=== PATIENT | male | born 1980 | race Caucasian/White ===

== ENCOUNTER 2016-07-25 03:55 | Emergency (ER) | payer OTHER ==
[~2016-07-25] VITALS: Ht 172.7 cm; Wt 104.3 kg
[~2016-07-25 03:55] MED LIST: ASPI81TA3 PO; GLIP5TAB13 PO; IBUP-1542 PO; LISI-313 PO; LORA-441 PO; METF-382 PO
[2016-07-25 03:58] VITALS: Ht 172.7 cm; Wt 104.3 kg
[2016-07-25 05:51] LABS: ADD SCAN DIFF NO
[2016-07-25 05:54] LABS: BASOPHIL # 0.1 10^3/ul (0.0-0.1); EOSINOPHILS # 0.5 10^3/ul (0.0-0.5); EOSINOPHILS % 6.3 % (0.0-7.0); HEMATOCRIT 44.2 % (42.0-52.0); LYMPHOCYTES # 2.4 10^3/ul (0.8-2.9); LYMPHOCYTES % 32.8 % (15.0-51.0); MEAN CORPUSCULAR HEMOGLOBIN 27.8 pg (29.0-33.0); MEAN CORPUSCULAR HGB CONC 33.9 g/dl (32.0-37.0); MEAN CORPUSCULAR VOLUME 81.9 fl (82.0-101.0); MEAN PLATELET VOLUME 10.7 fl (7.4-10.4); MONOCYTE # 0.5 10^3/ul (0.3-0.9); MONOCYTES % 7.1 % (0.0-11.0); NEUTROPHIL # 3.8 10^3/ul (1.6-7.5); NEUTROPHILS % 52.5 % (39.0-77.0); PLATELET COUNT 226 10^3/UL (140-415); RED CELL DISTRIBUTION WIDTH 12.6 % (11.5-14.5); WHITE BLOOD COUNT 7.2 10^3/ul (4.8-10.8)
[2016-07-25 05:55] VITALS: BP 118/75; PULSE 70; RESP 14
[2016-07-25 06:05] LABS: ALBUMIN 4.4 g/dl (3.3-4.9); CHLORIDE 99 mmol/L (97-110); SODIUM 141 mmol/L (135-144)
[2016-07-25 06:07] LABS: BILIRUBIN,INDIRECT 0.1 mg/dl (0-1.1); BILIRUBIN,TOTAL 0.1 mg/dl (0.2-1.3); CREATININE 0.62 mg/dl (0.61-1.24)
[2016-07-25 06:08] LABS: ALANINE AMINOTRANSFERASE 104 IU/L (13-69); ALBUMIN/GLOBULIN RATIO 1.51; ALKALINE PHOSPHATASE 89 IU/L (42-121); ANION GAP 17 (8-16); ASPARTATE AMINO TRANSFERASE 37 IU/L (15-46); BLOOD UREA NITROGEN 14 mg/dl (7-20); CALCIUM 9.5 mg/dl (8.4-10.2); CARBON DIOXIDE 29 mmol/L (21-31); GLUCOSE 178 mg/dl (70-220); TOTAL PROTEIN 7.3 g/dl (6.1-8.1)
--- NOTE | 2016-07-25 06:10 | RADRPT ---
PROCEDURE: XR Chest. CLINICAL INDICATION: Abdominal pain TECHNIQUE: A single AP view of the chest was obtained. COMPARISON: Chest x-ray dated 04/08/2016 FINDINGS: No focal airspace opacification, pleural effusion or pneumothorax is seen. The cardiomediastinal si lhouette is within normal limits for size. The osseous structures are unremarkable. IMPRESSION: No radiographic evidence of acute cardiopulmonary disease. No significant interval change. RPTAT: HH .Yamileth Back MD, MD Date Time Electronically viewed and signed by .Yamileth Back MD, on 07/25/2016 06:10 .G/
[2016-07-25 06:20] LABS: TROPONIN-I < 0.012 ng/ml (0.00-0.12)
[2016-07-25] MEDS ORDERED: SOD CHLORIDE 0.9% 1,000 ML IV STA (06:35)
[2016-07-25] MEDS ORDERED: KETOROLAC 30 MG INJ IV STA (06:36)
[2016-07-25] MEDS ORDERED: IOHEXOL 300MG/ML 150 ML BTL ONE (06:37)
[2016-07-25] MEDS ORDERED: SOD CHLORIDE 0.9% 100 ML ONE ×2 (06:37→06:47)
[2016-07-25] MEDS ORDERED: IOHEXOL 100 ML ONE (06:47)
--- NOTE | 2016-07-25 06:48 | ERD ---
ER Documentation Chief Complaint Date/Time DATE: 07/25/16 TIME: 06:38 Chief Complaint pt woke 15 minutes ago w/ pressure like chest pain radaiting left arm HPI This is a 36-year-old male with history of hypertension, type 2 diabetes mellitus and hypercholesterolemia that presents to the emergency department complaining of a sudden onset of left lower quadrant pain that awoke him at roughly 3 AM, 15 minutes before he arrived to the emergency department. The patient indicated that the left lower quadrant pain was a sharp shooting pain with no radiation to the back or right lower quadrant. He had no frequency urgency or dysuria. He did indicate that shortly after the onset of the abdominal pain he developed a bilateral chest discomfort that radiated to the left and the right arm. He stated the chest discomfort was a sharp shooting pain that radiated to both the left and the right arm. Contrary to the triage note the patient stated he did not experience any chest pressure and no associated symptoms of nausea vomiting or diaphoresis. The patient does not smoke tobacco. He has been compliant with all his medications. He denies any polyuria polydipsia. He denies a headache or changes in vision. He has no shortness of breath at rest or exertion. ROS All systems reviewed and are negative except as per history of present illness. Medications Home Meds Active Scripts Ibuprofen* (Motrin*) 600 Mg Tab, 600 MG PO Q8, #30 TAB Prov:JERAMIE COLUNGA DO 04/08/16 Reported Medications Lorazepam* (Ativan*) 0.5 Mg Tablet, 0.5 MG PO Q8 Y for ANXIETY, #60 TAB 04/08/16 Metformin Hcl* (Metformin Hcl*) 500 Mg Tablet, 500 MG PO WITH BREAKFAST DINNE, # 30 TAB 04/08/16 Aspirin* (Aspirin* Chew) 81 Mg Tab.chew, 81 MG PO DAILY, TAB.CHEW 11/12/15 Lisinopril* (Lisinopril*) 5 Mg Tablet, 5 MG PO DAILY, #30 TAB 11/12/15 Glipizide* (Glipizide*) 5 Mg Tablet, 5 MG PO BID, TAB 11/12/15 Allergies Allergies: Coded Allergies: No Known Drug Allergies (Verified Allergy, Mild, 04/08/16) PMhx/Soc History of Surgery: No Anesthesia Reaction: No Hx Neurological Disorder: No Hx Respiratory Disorders: No Hx Cardiac Disorders: Yes (htn, dm, high cholesterol) Hx Psychiatric Problems: Yes (anxiety) Hx Miscellaneous Medical Probl: Yes (anxiety) Hx Alcohol Use: No Hx Substance Use: No Hx Tobacco Use: No Smoking Status: Never smoker Physical Exam Vitals Vital Signs Date Time Temp Pulse Resp B/P Pulse Ox O2 Delivery O2 Flow Rate FiO2 07/25/16 05:55 70 14 118/75 97 Room Air 07/25/16 03:58 97.7 78 20 185/110 96 Physical Exam Constitutional:Well-developed. Well-nourished. HEENT:Normocephalic. Atraumatic.Pupils were equal round reactive to light. Moist mucous membranes.No tonsillar exudates. Neck: No nuchal rigidity. No lymphadenopathy. No posterior cervical spine tenderness or step-offs. Respiratory: Not using accessory muscles of respiration.Lungs were clear to auscultation bilaterally. No rhonchi. No rales. No wheezing. Cardiovascular: Regular rate regular rhythm.No murmurs. No rubs were appreciated.S1, S2 normal. Distal pulses are palpable 2+ bilaterally. Reproducible bilateral chest wall tenderness with no crepitus no ecchymosis no flail chest peer GI: Abdomen was soft. Left lower quadrant tenderness. Non Distended. No pulsatile abdominal masses or bruits. No rebound. No guarding. Bowel sounds were present and normal. Muscle skeletal: Full range of motion of both the upper and lower extremities bilaterally.Normal muscle tone.No assymetrical calf tenderness or swelling. Skin: No petechia, no purpura. No lesions on the palms or the soles of the feet. No maculopapular rash. NEURO: Patient was alert, awake, orientated x3.No facial droop. Gait observed and normal with no ataxia.Speech had regular rate and rhythm. No focal neurological deficits. Result Diagram: 07/25/1636 07/25/1636 Results 24 hrs Laboratory Tests Test 07/25/16 05:36 Alanine Aminotransferase (ALT/SGPT) 104IU/L Albumin 4.4g/dl Albumin/Globulin Ratio 1.51 Alkaline Phosphatase 89IU/L Anion Gap 17 Aspartate Amino Transf (AST/SGOT) 37IU/L Basophils # 0.110^3/ul Basophils % 1.0% Blood Urea Nitrogen 14mg/dl Calcium Level 9.5mg/dl Carbon Dioxide Level 29mmol/L Chloride Level 99mmol/L Creatinine 0.62mg/dl Direct Bilirubin 0.00mg/dl Eosinophils # 0.510^3/ul Eosinophils % 6.3% Globulin 2.90g/dl Glucose Level 178mg/dl Hematocrit 44.2% Hemoglobin 15.0g/dl Indirect Bilirubin 0.1mg/dl Lipase 114U/L Lymphocytes # 2.410^3/ul Lymphocytes % 32.8% Mean Corpuscular Hemoglobin 27.8pg Mean Corpuscular Hemoglobin Concent 33.9g/dl Mean Corpuscular Volume 81.9fl Mean Platelet Volume 10.7fl Monocytes # 0.510^3/ul Monocytes % 7.1% Neutrophils # 3.810^3/ul Neutrophils % 52.5% Nucleated Red Blood Cells # 0.010^3/ul Nucleated Red Blood Cells % 0.0/100WBC Platelet Count 18781^3/UL Potassium Level 4.0mmol/L Red Blood Count 5.4010^6/ul Red Cell Distribution Width 12.6% Sodium Level 141mmol/L Total Bilirubin 0.1mg/dl Total Protein 7.3g/dl Troponin I < 0.012ng/ml White Blood Count 7.210^3/ul Current Medications Medications (Trade) Dose Ordered Sig/Kp Route PRN Reason Start Time Stop Time Status Last Admin Dose Admin Sodium Chloride (NS) 1,000 ml @ 1,000 mls/hr Q1H STAT IV 07/25/16 06:35 07/25/16 07:34 UNV Procedures/MDM The patient presented to the emergency department complaining of chest pain and abdominal pain. My clinical evaluation and workup was to distinguish minor causes of chest pain from acute life threatening cardiopulmonary causes such as myocardial infarction, pulmonary embolism, aortic dissection, esophageal rupture , cardiac tamponade, The patient was placed on a surveillance system monitor, continuous pulse oximetry and IV access established by nursing staff. The patient received anti-inflammatories for analgesic control. 12 Lead EKG tracing ordered and reviewed by myself showed: Normal sinus rhythm of 82 bpm and no arrhythmia. AR interval normal. QRS duration normal. No ST segment elevation No ST segment depression. No changes consistent with acute ischemia. Also obtained a CT scan of the abdomen given the patient also had abdominal pain. There is no evidence of diverticulitis, appendicitis or obstructive uropathy. This was reviewed by both myself and the radiologist. The patient had no leukocytosis. Troponin was normal. There is no electrolyte abnormalities. The patients chest pain was reproduced by palpation and horizontal flexion of the arms. It was my clinical impression that the pain was a result of inflammation of the skin and subcutaneous structures of the chest wall versus myocardial ischemia. I felt the patient had low-risk chest pain and could therefore be safely discharged with close follow-up. The patient was discharged home in fair condition. They were instructed to return to the emergency department at any time if there was any worsening of their condition. The patient stated they would follow up with their PCP in the next 24-48 hours to initiate a suitable medication regimen under the care of their PCP as well as to allow their PCP to monitor any drug reactions. The patient was discharged home with prescriptions after they gave informed consent to the new medication. They were also fully informed by myself on the adverse effects and adverse drug interactions in order to provide adequate safeguards to prevent possible adverse reactions to medications. Departure Diagnosis: Primary Impression: Costochondritis Condition: TRISTON Figueroa Jul 25, 2016 06:48
[2016-07-25] MEDS ORDERED: DICLOFENAC SODIUM 37.5 MG/ML VIAL IV STA (06:49)
[2016-07-25] MEDS ORDERED: NAPR-260 PO (06:53)
[2016-07-25 06:58] LABS: ADD UMIC NO; URINE BILIRUBIN (Dip) NEGATIVE (NEGATIVE); URINE BLOOD (Dip) NEGATIVE (NEGATIVE); URINE COLOR LT. YELLOW (YELLOW); URINE KETONES (Dip) TRACE (NEGATIVE); URINE LEUKOCYTE ESTERASE (Dip) NEGATIVE (NEGATIVE); URINE NITRITE (Dip) NEGATIVE (NEGATIVE); URINE TOTAL PROTEIN (Dip) NEGATIVE (NEGATIVE); URINE UROBILINOGEN (Dip) 0.2 E.U./dL (0.1-1.0)
--- NOTE | 2016-07-25 07:00 | RADRPT ---
PROCEDURE: CT ABDOMEN/PELVIS WITH CONTRAST CLINICAL INDICATION: 36-year-old male with abdominal pain. TECHNIQUE: The study was performed utilizing a [employer] [place] [employer] VCT 64-slice CT scanner. Direct axia l sections were obtained through the abdomen and pelvis with the use of 100 cc of Omnipaque-300 tera onic intravenous contrast material. Sagittal and coronal reformations were obtained. Automated expos ure control and iterative reconstruction techniques were utilized for this examination. The images were reviewed on a PACS workstation. CTD/vol = 15.3 mGy; Total Exam DLP = 976.7 mGy-cm. COMPARISON: CT abdomen/pelvis November 27, 2015. FINDINGS: The lung bases are unremarkable. There is no evidence for significant pleural effusion. The liver has a normal size and contour. There is diffuse decreased density throughout the liver consistent w ith fatty infiltration without focal areas of abnormal density or contrast enhancement. No intrahepa tic nor extrahepatic biliary ductal dilatation is seen. The gallbladder demonstrates no wall thicken ing nor pericholecystic fluid. No biliary stones are evident. The pancreas is without areas of abnor mal attenuation or contrast enhancement. This spleen is identified and has a normal size without ab normal density or contrast enhancement. The adrenal glands are unremarkable. The kidneys are functio nal bilaterally without abnormal density. No hydroureteronephrosis nor nephroureterolithiasis is cassidy dent. The urinary bladder contains urine. There is mild retained stool identified throughout the col on without gross bowel obstruction. The appendix is visualized and is without edema or surrounding inflammatory reaction. There is no significant free fluid. The aortoiliac vessels are without aneur ysmal dilatation. The osseous structures are intact. IMPRESSION: 1. Diffuse fatty infiltration of the liver. 2. Retained stool without gross bowel obstruction. 3. No CT evidence for appendicitis. .Rodney Triana MD, Date Time Electronically viewed and signed by .Rodney Triana MD, on 07/25/2016 07:00 .Vikash/
== END 2016-07-25 08:09 | disposition home or self-care (01) ==
LOC: E/R 03:55
DX: M94.0 Chondrocostal junction syndrome [Tietze] (principal); I10 Essential (primary) hypertension; E11.9 Type 2 diabetes mellitus without complications; Z79.84 Long term (current) use of oral hypoglycemic drugs; Z79.82 Long term (current) use of aspirin
CPT/HCPCS: 36415; 71010; 74177; 80053; 81003; 83690; 84484; 85025; 93005; 96374; J7030; Q9967; Z7502; Z7610

== ENCOUNTER 2016-08-11 01:12 | Emergency (ER) | payer SELFPAY ==
[~2016-08-11] VITALS: Ht 172.7 cm; Wt 103.0 kg
[~2016-08-11 01:12] MED LIST changes: +NAPR-260 PO
[2016-08-11 01:40] VITALS: Ht 172.7 cm; Wt 103.0 kg
== END 2016-08-11 02:39 | disposition left against medical advice (07) ==
LOC: E/R 01:12
DX: Z53.21 Procedure and treatment not carried out due to patient leaving prior to being seen by health care provider (principal)

== ENCOUNTER 2016-08-21 02:34 | Emergency (ER) | payer OTHER ==
[~2016-08-21] VITALS: Ht 172.7 cm; Wt 104.5 kg
[2016-08-21 02:39] VITALS: Ht 172.7 cm; Wt 104.5 kg
[2016-08-21] MEDS ORDERED: IBUP-1542 PO (04:43)
[2016-08-21] MEDS ORDERED: GUAI120S26 PO (04:43)
[2016-08-21] MEDS ORDERED: CETI10CA PO (04:43)
[2016-08-21 04:50] VITALS: BP 128/72; PULSE 76; RESP 20; TEMP 98.4
--- NOTE | 2016-08-21 05:15 | ERD ---
ER Documentation Chief Complaint Date/Time DATE: 08/21/16 TIME: 05:09 Chief Complaint Anxiety, Unable to sleep, bodyaches HPI 36-year-old male presents to emergency department for complaints of cough bodyaches runny nose nasal congestion for 5 days. Patient has been having dry cough, does not cough up any phlegm or blood. Patient does not have any shortness breath or wheezing. Patient has been having runny nose nasal congestion clear nasal discharge. Patient has history of anxiety, unable to sleep because of his body aches. Patient did not take any medications of symptoms. Patient states that he takes his medication for anxiety, sees a specialist for this. His anxiety is controlled at this time. ROS All systems reviewed and are negative except as per history of present illness. Medications Home Meds Active Scripts Cetirizine Hcl* (Zyrtec*) 10 Mg Capsule, 10 MG PO DAILY, #30 TAB.CHEW Prov:RODNEY CHAMBERS [employer]OR 08/21/16 Ibuprofen* (Motrin*) 600 Mg Tab, 600 MG PO Q6H Y for PAIN AND OR ELEVATED TEMP, #30 TAB Prov:RODNEY CHAMBERS [employer] MONITOR 08/21/16 Iwxwcdgnwyd-B-Zatxxpnwod Hb* (Guaifenesin* DM Syrup) 120 Ml Syrup, 10 ML PO Q4H Y for COUGH, #120 ML Prov:RODNEY CHAMBERS NP 08/21/16 Naproxen* (Naprosyn*) 500 Mg Tablet, 500 MG PO BID Y for PAIN AND/OR INFLAMMATION, #20 TAB Prov:TRISTON PRATT 07/25/16 Ibuprofen* (Motrin*) 600 Mg Tab, 600 MG PO Q8, #30 TAB Prov:JERAMIE COLUNGA DO 04/08/16 Reported Medications Lorazepam* (Ativan*) 0.5 Mg Tablet, 0.5 MG PO Q8 Y for ANXIETY, #60 TAB 04/08/16 Metformin Hcl* (Metformin Hcl*) 500 Mg Tablet, 500 MG PO WITH BREAKFAST DINNE, # 30 TAB 04/08/16 Aspirin* (Aspirin* Chew) 81 Mg Tab.chew, 81 MG PO DAILY, TAB.CHEW 11/12/15 Lisinopril* (Lisinopril*) 5 Mg Tablet, 5 MG PO DAILY, #30 TAB 11/12/15 Glipizide* (Glipizide*) 5 Mg Tablet, 5 MG PO BID, TAB 11/12/15 Allergies Allergies: Coded Allergies: No Known Drug Allergies (Verified Allergy, Mild, 04/08/16) PMhx/Soc History of Surgery: No Anesthesia Reaction: No Hx Neurological Disorder: No Hx Respiratory Disorders: No Hx Cardiac Disorders: Yes (htn, dm, high cholesterol) Hx Psychiatric Problems: Yes (anxiety) Hx Miscellaneous Medical Probl: Yes (anxiety) Hx Alcohol Use: No Hx Substance Use: No Hx Tobacco Use: No Smoking Status: Never smoker FmHx Family History: No coronary disease, No diabetes, No other Physical Exam Vitals Vital Signs Date Time Temp Pulse Resp B/P Pulse Ox O2 Delivery O2 Flow Rate FiO2 08/21/16 02:39 97.6 89 20 132/84 98 Physical Exam GENERAL: The patient is well developed and appropriate for usual state of health, in no apparent distress. HEENT: Atraumatic. Ears: Normal tympanic membrane, no erythema or bulging. No ear canal swelling. No ear discharge. Nose: Erythematous nasal turbinates with clear nasal. Throat: oropharynx erythematous nasal turbinates with clear nasal discharge. No tonsillar swelling or tonsillar exudates. No lymphadenopathy. CHEST: Clear to auscultation bilaterally. There are no rales, wheezes or rhonchi. HEART: Regular rate and rhythm. No murmurs, clicks, rubs or gallops. No S3 or S4. ABDOMEN: Soft, nontender and nondistended. Good bowel sounds. No rebound or guarding. No gross peritonitis. No gross organomegaly or masses. No Park sign or McBurney point tenderness. BACK: No midline or flank tenderness. EXTREMITIES: Equal pulses bilaterally. There is no peripheral clubbing, cyanosis or edema. No focal swelling or erythema. Full range of motion. Grossly neurovascularly intact. NEURO: Alert and oriented. Cranial nerves 2-12 intact. Motor strength in all 4 extremities with 5/5 strength. Sensation grossly intact. Normal speech and gait. SKIN: There is no apparent rash or petechia. The skin is warm and dry. HEMATOLOGIC AND LYMPHATIC: There is no evidence of excessive bruising or lymphedema. No gross cervical, axillary, or inguinal lymphadenopathy. Procedures/MDM Medical Decision Making: Patient symptoms are most likely consistent with upper respiratory tract infection, which viral in origin. There is low suspicion for Pneumonia at this time since patients lungs sounds are clear, patient O2 saturation is normal and patient doesnt show any respiratory distress. Patients chest xray doesnt show infiltrates or any other cardiopulmonary emergencies at this time. There is low suspicion for other cardiopulmonary emergencies at this time such as CHF, Pulmonary Embolism, Pneumothorax or any other cardiopulmonary emergencies at this time. There is low suspicion for sepsis. Patient appears well and is hemodynamically stable. Fever is controlled with medicines. Disposition: Home. Condition: Stable Prescriptions: Guaifenesin DM Zyrtec, ibuprofen Instructions: Patient is advised to take medications as prescribed. Patient is advised to rest. Patient advised to increase fluid intake, do humidifier at home and if possible, do salt water gargles. Patient is advised that if symptoms are worse, shortness of breath, uncontrolled fever, stridor, vomiting, worst signs and symptoms to return to emergency department immediately. Otherwise, patient is advised to follow up with primary doctor in 5-7 days. Departure Diagnosis: Primary Impression: URI (upper respiratory infection) URI type: unspecified viral URI Qualified Code: J06.9 - Viral upper respiratory tract infection Condition: Stable Patient Instructions: Uri, Viral, No Abx (Adult) RODNEY CHAMBERS NP Aug 21, 2016 05:15
== END 2016-08-21 05:10 | disposition home or self-care (01) ==
LOC: FTE 02:34
DX: J06.9 Acute upper respiratory infection, unspecified (principal); I10 Essential (primary) hypertension; E11.9 Type 2 diabetes mellitus without complications; Z79.84 Long term (current) use of oral hypoglycemic drugs; Z79.82 Long term (current) use of aspirin
CPT/HCPCS: 99283

== ENCOUNTER 2016-09-14 23:58 | Emergency (ER) | payer SELFPAY ==
[~2016-09-14] VITALS: Ht 172.7 cm; Wt 105.0 kg
[~2016-09-14 23:58] MED LIST changes: +CETI10CA PO; +GUAI120S26 PO; -METF-382 PO; +METF500T4 PO
[2016-09-15 00:02] VITALS: Ht 172.7 cm; Wt 105.0 kg
== END 2016-09-15 00:15 | disposition left against medical advice (07) ==
LOC: FTE 23:58 → E/R 09-15 00:15
DX: Z53.21 Procedure and treatment not carried out due to patient leaving prior to being seen by health care provider (principal)

== ENCOUNTER 2016-09-28 23:34 | Emergency (ER) | payer OTHER ==
[~2016-09-28] VITALS: Ht 172.7 cm; Wt 104.0 kg
[~2016-09-28 23:34] MED LIST changes: -CETI10CA PO; +GABA100C14 PO; -GUAI120S26 PO; -IBUP-1542 PO; -LORA-441 PO; -NAPR-260 PO
[2016-09-29 00:01] VITALS: Ht 172.7 cm; Wt 104.0 kg
--- NOTE | 2016-09-29 00:56 | ERD ---
ER Documentation Chief Complaint Date/Time DATE: 09/29/16 TIME: 00:54 Chief Complaint Body aches and muscle cramps after taking statins for1 WEEK, HPI 36 year female presents here in emergency department for complaint of body aches and muscle cramps after taking statins for 1 week. Patient was placed on new medication, some statins for his cholesterol started to have the body aches and muscle cramps afterwards. Patient denies any chest pain or palpitations. Patient is any shortness of breath. Patient denies any dyspnea on exertion or dyspnea on lying down. Patient denies any dark-colored urine. Patient denies any hematuria. Patient denies any flank pain. ROS All systems reviewed and are negative except as per history of present illness. Medications Home Meds Reported Medications Gabapentin* (Gabapentin*) 100 Mg Capsule, 200 MG PO QHS, #180 CAP 09/19/16 Metformin Hcl* (Metformin Hcl*) 500 Mg Tablet, 500 MG PO WITH BREAKFAST DINNE, # 30 TAB 04/08/16 Aspirin* (Aspirin* Chew) 81 Mg Tab.chew, 81 MG PO DAILY, TAB.CHEW 11/12/15 Lisinopril* (Lisinopril*) 5 Mg Tablet, 5 MG PO DAILY, #30 TAB 11/12/15 Glipizide* (Glipizide*) 5 Mg Tablet, 5 MG PO BID, TAB 11/12/15 Allergies Allergies: Coded Allergies: No Known Drug Allergies (Verified Allergy, Mild, 04/08/16) PMhx/Soc History of Surgery: No Anesthesia Reaction: No Hx Neurological Disorder: No Hx Respiratory Disorders: No Hx Cardiac Disorders: Yes (htn, dm, high cholesterol) Hx Psychiatric Problems: Yes (anxiety) Hx Miscellaneous Medical Probl: Yes (anxiety) Hx Alcohol Use: No Hx Substance Use: No Hx Tobacco Use: No Smoking Status: Never smoker FmHx Family History: No coronary disease, No diabetes, No other Physical Exam Vitals Vital Signs Date Time Temp Pulse Resp B/P Pulse Ox O2 Delivery O2 Flow Rate FiO2 09/29/16 00:01 97.7 90 16 141/87 97 Physical Exam GENERAL: The patient is well developed and appropriate for usual state of health, in no apparent distress. CHEST: Clear to auscultation bilaterally. There are no rales, wheezes or rhonchi. HEART: Regular rate and rhythm. No murmurs, clicks, rubs or gallops. No S3 or S4. ABDOMEN: Soft, nontender and nondistended. Good bowel sounds. No rebound or guarding. No gross peritonitis. No gross organomegaly or masses. No Park sign or McBurney point tenderness. BACK: No midline or flank tenderness. EXTREMITIES: Equal pulses bilaterally. There is no peripheral clubbing, cyanosis or edema. No focal swelling or erythema. Full range of motion. Grossly neurovascularly intact. NEURO: Alert and oriented. Cranial nerves 2-12 intact. Motor strength in all 4 extremities with 5/5 strength. Sensation grossly intact. Normal speech and gait. SKIN: There is no apparent rash or petechia. The skin is warm and dry. HEMATOLOGIC AND LYMPHATIC: There is no evidence of excessive bruising or lymphedema. No gross cervical, axillary, or inguinal lymphadenopathy. Result Diagram: 09/29/16 0052 Results 24 hrs Laboratory Tests Test 09/29/16 00:52 Urine Color LT. YELLOW Urine Clarity CLEAR Urine pH 6.0 Urine Specific [place] 1.020 Urine Ketones NEGATIVE Urine Nitrite NEGATIVE Urine Bilirubin NEGATIVE Urine Urobilinogen 0.2 E.U./dL Urine Leukocyte Esterase NEGATIVE Urine Microscopic RBC 0-2/HPF Urine Microscopic WBC NONE SEEN/HPF Urine Squamous Epithelial Cells RARE Urine Bacteria RARE Urine Hemoglobin TRACE Urine Glucose >=1000% Urine Total Protein NEGATIVE Sodium Level 134mmol/L Potassium Level 4.3mmol/L Chloride Level 98mmol/L Carbon Dioxide Level 28mmol/L Anion Gap 12 Blood Urea Nitrogen 14mg/dl Creatinine 0.68mg/dl Glucose Level 251mg/dl Calcium Level 9.7mg/dl Total Bilirubin 0.1mg/dl Direct Bilirubin 0.00mg/dl Indirect Bilirubin 0.1mg/dl Aspartate Amino Transf (AST/SGOT) 35IU/L Alanine Aminotransferase (ALT/SGPT) 93IU/L Alkaline Phosphatase 91IU/L Creatine Kinase 95IU/L Total Protein 7.9g/dl Albumin 4.4g/dl Globulin 3.50g/dl Albumin/Globulin Ratio 1.25 Procedures/MDM Medical Decision Making: Patient's pain is most likely consistent with a myalgias caused by statins, also advised to stop this, no rhabdomyolysis noted, total CK is normal. There is no suspicion for neurovascular compromise. Patient has intact sensation and circulation of the affected extremity. There is low suspicion for septic arthritis. Patient does not have any fever. Radiology exams are not indicated at this time. Disposition: Home. Patient is given prescription for ibuprofen for pain. Patient was advised to.taking status come discussed this with primary care doctor. Patient was advised that if symptoms are worse, numbness, tingling, high fever, unable to move joint, worsening symptoms, to return to emergency department immediately. Otherwise, patient is advised to follow up with the primary care doctor in 5-7 days for reevaluation of symptoms. Departure Diagnosis: Primary Impression: Myalgia Condition: Stable Patient Instructions: Myalgias Additional Instructions: Patient is given prescription for ibuprofen for pain. Patient was advised to.taking status come discussed this with primary care doctor. Patient was advised that if symptoms are worse, numbness, tingling, high fever, unable to move joint, worsening symptoms, to return to emergency department immediately. Otherwise, patient is advised to follow up with the primary care doctor in 5-7 days for reevaluation of symptoms. RODNEY CHAMBERS NP September 29, 2016 00:55
[2016-09-29 01:21] LABS: ADD UMIC YES; URINE BILIRUBIN (Dip) NEGATIVE (NEGATIVE); URINE BLOOD (Dip) TRACE (NEGATIVE); URINE COLOR LT. YELLOW (YELLOW); URINE GLUCOSE (Dip) >=1000 % (NEGATIVE); URINE KETONES (Dip) NEGATIVE (NEGATIVE); URINE LEUKOCYTE ESTERASE (Dip) NEGATIVE (NEGATIVE); URINE NITRITE (Dip) NEGATIVE (NEGATIVE); URINE TOTAL PROTEIN (Dip) NEGATIVE (NEGATIVE); URINE UROBILINOGEN (Dip) 0.2 E.U./dL (0.1-1.0)
[2016-09-29 01:34] LABS: ALBUMIN 4.4 g/dl (3.3-4.9); ALBUMIN/GLOBULIN RATIO 1.25; BILIRUBIN,INDIRECT 0.1 mg/dl (0-1.1); BILIRUBIN,TOTAL 0.1 mg/dl (0.2-1.3); CALCIUM 9.7 mg/dl (8.4-10.2); CREATININE 0.68 mg/dl (0.61-1.24); POTASSIUM 4.3 mmol/L (3.5-5.1); TOTAL PROTEIN 7.9 g/dl (6.1-8.1)
[2016-09-29 01:38] LABS: BACTERIA,URINE RARE; SQUAMOUS EPITHELIAL CELL,UR RARE; URINE RBCS 0-2 /HPF (0)
[2016-09-29] MEDS ORDERED: IBUP-1542 PO (02:02)
== END 2016-09-29 02:10 | disposition home or self-care (01) ==
LOC: FTE 23:34
DX: M79.1 Myalgia (principal); I10 Essential (primary) hypertension; E11.9 Type 2 diabetes mellitus without complications; Z79.82 Long term (current) use of aspirin; Z79.84 Long term (current) use of oral hypoglycemic drugs
CPT/HCPCS: 80053; 81001; 82550; Z7502; 81003; 99283

== ENCOUNTER 2016-10-13 02:24 | Emergency (ER) | payer OTHER ==
[~2016-10-13] VITALS: Ht 172.7 cm; Wt 104.5 kg
[~2016-10-13 02:24] MED LIST changes: +IBUP-1542 PO
[2016-10-13 02:29] VITALS: Ht 172.7 cm; Wt 104.5 kg
--- NOTE | 2016-10-13 03:29 | ERD ---
ER Documentation Chief Complaint Date/Time DATE: 10/13/16 TIME: 03:25 Chief Complaint cp/sob that woke him sleep, hx anxiety, wants to be checked out HPI 36-year-old male presents to emergency department for complaints of chest pain shortness of breath that woke him up this morning. Patient has history of anxiety from before, just wanted to be evaluated again and make sure that he doesn't have any acute coronary syndrome. Patient has had this on and off chest pains before. Patient discussed the chest pain as sharp in succession scale, not better or worse with anything. Patient took his anxiety medication at home which helped his symptoms, now patient is asymptomatic. Patient's pain is improved and resolved. Patient denies homicidal or suicidal ideations. ROS All systems reviewed and are negative except as per history of present illness. Medications Home Meds Active Scripts Ibuprofen* (Motrin*) 600 Mg Tab, 600 MG PO Q6H Y for PAIN AND OR ELEVATED TEMP, #30 TAB Prov:RODNEY CHAMBERS NP 09/29/16 Reported Medications Gabapentin* (Gabapentin*) 100 Mg Capsule, 200 MG PO QHS, #180 CAP 09/19/16 Metformin Hcl* (Metformin Hcl*) 500 Mg Tablet, 500 MG PO WITH BREAKFAST DINNE, # 30 TAB 04/08/16 Aspirin* (Aspirin* Chew) 81 Mg Tab.chew, 81 MG PO DAILY, TAB.CHEW 11/12/15 Lisinopril* (Lisinopril*) 5 Mg Tablet, 5 MG PO DAILY, #30 TAB 11/12/15 Glipizide* (Glipizide*) 5 Mg Tablet, 5 MG PO BID, TAB 11/12/15 Allergies Allergies: Coded Allergies: No Known Drug Allergies (Verified Allergy, Mild, 04/08/16) PMhx/Soc History of Surgery: No Anesthesia Reaction: No Hx Neurological Disorder: No Hx Respiratory Disorders: No Hx Cardiac Disorders: Yes (htn, dm, high cholesterol) Hx Psychiatric Problems: Yes (anxiety) Hx Miscellaneous Medical Probl: Yes (anxiety) Hx Alcohol Use: No Hx Substance Use: No Hx Tobacco Use: No FmHx Family History: No coronary disease, No diabetes, No other Physical Exam Vitals Vital Signs Date Time Temp Pulse Resp B/P Pulse Ox O2 Delivery O2 Flow Rate FiO2 10/13/16 02:29 97.0 70 20 119/76 97 Physical Exam GENERAL: The patient is well developed and appropriate for usual state of health, in no apparent distress. CHEST: Clear to auscultation bilaterally. There are no rales, wheezes or rhonchi. HEART: Regular rate and rhythm. No murmurs, clicks, rubs or gallops. No S3 or S4. ABDOMEN: Soft, nontender and nondistended. Good bowel sounds. No rebound or guarding. No gross peritonitis. No gross organomegaly or masses. No Park sign or McBurney point tenderness. BACK: No midline or flank tenderness. EXTREMITIES: Equal pulses bilaterally. There is no peripheral clubbing, cyanosis or edema. No focal swelling or erythema. Full range of motion. Grossly neurovascularly intact. NEURO: Alert and oriented. Cranial nerves 2-12 intact. Motor strength in all 4 extremities with 5/5 strength. Sensation grossly intact. Normal speech and gait. SKIN: There is no apparent rash or petechia. The skin is warm and dry. HEMATOLOGIC AND LYMPHATIC: There is no evidence of excessive bruising or lymphedema. No gross cervical, axillary, or inguinal lymphadenopathy. Results 24 hrs EKG was done, read by me and is normal sinus rhythm with sinus arrhythmia at a rate of 77, normal axis, there is no ST changes or changes in the EKG that indicates any cardiac emergencies at this time. Patient's EKG was also reviewed by Dr. Castro. Impression: no acute findings on EKG PROCEDURE: CHEST - 1 VIEW CLINICAL INDICATION: 36-year-old male with chest pain. TECHNIQUE: A single frontal AP upright portable view of the chest was performed. The images were reviewed on a PACS workstation. COMPARISON: Chest x-ray July 25, 2016. FINDINGS: The cardiomediastinal silhouette has a normal appearance. There is no evidence for an infiltrate. The pulmonary vascularity is within normal limits. There is no evidence for pneumothorax or pneumomediastinum. The osseous structures are intact. IMPRESSION: No evidence for active cardiopulmonary disease. .Rodney Triana MD, Date Time Electronically viewed and signed by .Rodney Triana MD, on 10/13/2016 03:41 .M/ CC: RODNEY CHAMBERS NP Procedures/MDM Medical Decision Making: Patient's chest pain nonspecific at this time, possible anxiety related. There is low suspicion for cardiopulmonary emergencies at this time. Patient has low risk factors. EKG is normal, there is no changes in the EKG that indicates cardiac emergencies. Chest X-ray does not show cardiopulmonary emergencies at this time. There is low suspicion for aortic aneurysm, myocardial infarction, pneumothorax, pleural effusion, pulmonary embolism, or any other cardiopulmonary emergencies at this time. Dispostion: Home. Stable Departure Diagnosis: Primary Impression: Atypical chest pain Condition: Stable Patient Instructions: Chest Pain, Uncertain Cause RODNEY CHAMBERS NP October 13, 2016 03:29
--- NOTE | 2016-10-13 03:41 | RADRPT ---
PROCEDURE: CHEST - 1 VIEW CLINICAL INDICATION: 36-year-old male with chest pain. TECHNIQUE: A single frontal AP upright portable view of the chest was performed. The images were reviewed on a PACS workstation. COMPARISON: Chest x-ray July 25, 2016. FINDINGS: The cardiomediastinal silhouette has a normal appearance. There is no evidence for an infiltrate. T he pulmonary vascularity is within normal limits. There is no evidence for pneumothorax or pneumomed iastinum. The osseous structures are intact. IMPRESSION: No evidence for active cardiopulmonary disease. .Rodney Triana MD, MD Date Time Electronically viewed and signed by .Rodney Triana MD, on 10/13/2016 03:41 .Vikash/
== END 2016-10-13 04:05 | disposition home or self-care (01) ==
LOC: FTE 02:24
DX: R07.89 Other chest pain (principal); I10 Essential (primary) hypertension; E11.9 Type 2 diabetes mellitus without complications; Z79.82 Long term (current) use of aspirin; Z79.84 Long term (current) use of oral hypoglycemic drugs
CPT/HCPCS: 71010; 93005; Z7502

== ENCOUNTER 2016-11-27 17:26 | Emergency (ER) | payer OTHER ==
[~2016-11-27] VITALS: Ht 167.6 cm; Wt 104.5 kg
[2016-11-27 17:32] VITALS: Ht 167.6 cm; Wt 104.5 kg
[2016-11-27 18:05] LABS: BASOPHIL # 0.1 10^3/ul (0.0-0.1); EOSINOPHILS # 0.3 10^3/ul (0.0-0.5); HEMATOCRIT 43.4 % (42.0-52.0); HEMOGLOBIN 14.7 g/dl (14.0-18.0); LYMPHOCYTES # 3.2 10^3/ul (0.8-2.9); LYMPHOCYTES % 39.9 % (15.0-51.0); MEAN CORPUSCULAR HEMOGLOBIN 28.2 pg (29.0-33.0); MEAN CORPUSCULAR HGB CONC 33.9 g/dl (32.0-37.0); MEAN CORPUSCULAR VOLUME 83.3 fl (82.0-101.0); MONOCYTE # 0.6 10^3/ul (0.3-0.9); NEUTROPHIL # 3.9 10^3/ul (1.6-7.5); PLATELET COUNT 230 10^3/UL (140-415); RED BLOOD COUNT 5.21 10^6/ul (4.70-6.10); RED CELL DISTRIBUTION WIDTH 12.4 % (11.5-14.5)
[2016-11-27 18:24] LABS: ANION GAP 15 (8-16); BLOOD UREA NITROGEN 12 mg/dl (7-20); CALCIUM 9.5 mg/dl (8.4-10.2); CARBON DIOXIDE 24 mmol/L (21-31); CHLORIDE 100 mmol/L (97-110); CREATININE 0.72 mg/dl (0.61-1.24); GLUCOSE 194 mg/dl (70-220); POTASSIUM 4.2 mmol/L (3.5-5.1); SODIUM 135 mmol/L (135-144)
[2016-11-27 18:40] LABS: TROPONIN-I < 0.012 ng/ml (0.00-0.12)
--- NOTE | 2016-11-27 18:41 | RADRPT ---
PROCEDURE: Chest x-ray CLINICAL INDICATION: Chest pain TECHNIQUE: Chest single view COMPARISON: 10/13/2016 FINDINGS: The heart is normal in size. The pulmonary vessels are normal in caliber. The lungs are clear. Th e costophrenic angles are sharp. The visualized bony thorax is unremarkable. IMPRESSION: No acute cardiopulmonary disease. RPTAT: HH .Franklin Linares MD, Date Time Electronically viewed and signed by .Franklin Linares MD, on 11/27/2016 18:41 .W/
--- NOTE | 2016-11-27 18:47 | ERD ---
ER Documentation Chief Complaint Date/Time DATE: 11/27/16 TIME: 18:44 Chief Complaint Complains of mid-sternal chest pain since today HPI This is a 36-year-old male who presents to the emergency room for evaluation of a mild chest pain and shortness of breath. The patient does state he has a history of anxiety and states that he felt gradual chest pain. He states that he became mildly short of breath. He denies any radiation of the chest pain and states it was substernal. He denies any nausea vomiting or diaphoresis associated with this and states that he is no longer in any pain at this time. He came to the ER for further evaluation ROS All systems reviewed and are negative except as per history of present illness. Medications Home Meds Active Scripts Ibuprofen* (Motrin*) 600 Mg Tab, 600 MG PO Q6H Y for PAIN AND OR ELEVATED TEMP, #30 TAB Prov:RODNEY CHAMBERS [employer]WARE [employer] 09/29/16 Reported Medications Gabapentin* (Gabapentin*) 100 Mg Capsule, 200 MG PO QHS, #180 CAP 09/19/16 Metformin Hcl* (Metformin Hcl*) 500 Mg Tablet, 500 MG PO WITH BREAKFAST DINNE, # 30 TAB 04/08/16 Aspirin* (Aspirin* Chew) 81 Mg Tab.chew, 81 MG PO DAILY, TAB.CHEW 11/12/15 Lisinopril* (Lisinopril*) 5 Mg Tablet, 5 MG PO DAILY, #30 TAB 11/12/15 Glipizide* (Glipizide*) 5 Mg Tablet, 5 MG PO BID, TAB 11/12/15 Allergies Allergies: Coded Allergies: No Known Drug Allergies (Verified Allergy, Mild, 04/08/16) PMhx/Soc History of Surgery: No Anesthesia Reaction: No Hx Neurological Disorder: No Hx Respiratory Disorders: No Hx Cardiac Disorders: Yes (htn, dm, high cholesterol) Hx Psychiatric Problems: Yes (anxiety) Hx Miscellaneous Medical Probl: Yes (anxiety) Hx Alcohol Use: No Hx Substance Use: No Hx Tobacco Use: No Smoking Status: Never smoker Physical Exam Vitals Vital Signs Date Time Temp Pulse Resp B/P Pulse Ox O2 Delivery O2 Flow Rate FiO2 11/27/16 18:00 Nasal Cannula 2 11/27/16 17:32 97.8 76 20 142/86 98 Physical Exam INITIAL VITAL SIGNS: Reviewed by me GENERAL: The patient is well developed and appropriate for usual state of health in no apparent distress HEENT: Pupils equal, round, and reactive to light. EOMI. There is no scleral icterus. NECK: C-spine is soft and supple, there is no meningismus. There is no cervical lymphadenopathy. LUNGS: Clear to auscultation bilaterally. There are no rales, wheezes or rhonchi. HEART: Regular rate and rhythm, no murmurs, clicks, rubs or gallops. ABDOMEN: Soft, non-tender, non-distended. There are bowel sounds in all four quadrants. No rebound or guarding. EXTREMITIES: There is no peripheral cyanosis or edema. No focal swelling or erythema. NEUROLOGICAL: The patient moves all four extremities with 5/5 strength. Cranial nerves II - XII are intact. Normal gait. Alert and oriented SKIN: There is no apparent rash or petechiae. HEME/LYMPHATIC: There is no evidence of excessive bruising or lymphedema. PSYCHIATRIC: The patient does appear to be mildly anxious Result Diagram: 11/27/16175311/27/16 1754 Results 24 hrs Laboratory Tests Test 11/27/16 17:54 White Blood Count 8.010^3/ul Red Blood Count 5.2110^6/ul Hemoglobin 14.7g/dl Hematocrit 43.4% Mean Corpuscular Volume 83.3fl Mean Corpuscular Hemoglobin 28.2pg Mean Corpuscular Hemoglobin Concent 33.9g/dl Red Cell Distribution Width 12.4% Platelet Count 16436^3/UL Mean Platelet Volume 11.0fl Neutrophils % 48.0% Lymphocytes % 39.9% Monocytes % 7.0% Eosinophils % 4.0% Basophils % 1.0% Nucleated Red Blood Cells % 0.0/100WBC Neutrophils # 3.910^3/ul Lymphocytes # 3.210^3/ul Monocytes # 0.610^3/ul Eosinophils # 0.310^3/ul Basophils # 0.110^3/ul Nucleated Red Blood Cells # 0.010^3/ul Sodium Level 135mmol/L Potassium Level 4.2mmol/L Chloride Level 100mmol/L Carbon Dioxide Level 24mmol/L Anion Gap 15 Blood Urea Nitrogen 12mg/dl Creatinine 0.72mg/dl Glucose Level 194mg/dl Calcium Level 9.5mg/dl Troponin I < 0.012ng/ml Procedures/[facility] EKG: Rate/Rhythm: [Normal Sinus Rhythm] QRS, ST, T-waves: [No changes consistent w/ acute ischemia] Impression: [No evidence of ischemia or arrhythmia] Chest X-ray 1V Interpreted by me: Soft Tissue: No acute abnormalities Bones: No acute abnormalities Mediastinum/Cardiac Silhouette/Lungs: [No acute abnormalities] This 36-year-old male presents to the ER for evaluation of chest pain. When I evaluated this patient he did appear to be mildly anxious. The patient has been seen multiple times in the past for chest pain and multiple times for anxiety. He does state that this could be his anxiety but he was unsure because he had chest pain in the center of his chest and set up on the left side of his chest which he normally is. The patient was hemodynamically stable and not hypoxic on my examination. I did obtain a cardiac workup including an troponin which is negative. His EKG is nonischemic, chest x-ray is also clear. I do feel this patient suffering from anxiety. After some verbal consolation the patient does state he is feeling better. He will be discharged home at this time. Departure Diagnosis: Primary Impression: Chest pain Additional Impression: Anxiety Condition: Stable JERAMIE COLUNGA DO Nov 27, 2016 18:47
[2016-11-27 18:50] VITALS: BP 123/81; PULSE 69; RESP 18
[2016-11-27] MEDS ORDERED: GABA300C16 PO (18:51)
[2016-11-27] MEDS ORDERED: GLIP5TAB13 PO (18:52)
[2016-11-27] MEDS ORDERED: METF1000 PO (18:52)
[2016-11-27] MEDS ORDERED: LORA1TAB PO (18:53)
== END 2016-11-27 18:50 | disposition home or self-care (01) ==
LOC: E/R 17:26
DX: R07.2 Precordial pain (principal); F41.9 Anxiety disorder, unspecified; I10 Essential (primary) hypertension; E11.9 Type 2 diabetes mellitus without complications; Z79.82 Long term (current) use of aspirin; Z79.84 Long term (current) use of oral hypoglycemic drugs
CPT/HCPCS: 36415; 71010; 80048; 84484; 85025; 93005; Z7502

== ENCOUNTER 2017-01-04 02:33 | Emergency (ER) | payer OTHER ==
[~2017-01-04] VITALS: Ht 172.7 cm; Wt 104.5 kg
[~2017-01-04 02:33] MED LIST changes: -GABA100C14 PO; +GABA300C16 PO; -IBUP-1542 PO; +LORA1TAB PO; +METF1000 PO; -METF500T4 PO
[2017-01-04 02:39] VITALS: Ht 172.7 cm; Wt 104.5 kg
--- NOTE | 2017-01-04 03:05 | ERD ---
ER Documentation Chief Complaint Date/Time DATE: 01/04/17 TIME: 03:02 Chief Complaint sharp like chest pain radiating to left arm. HPI This is a 36-year-old male who presents to the emergency room for evaluation of chest pain and anxiety. The patient does have a history of diabetes and anxiety and has been the emergency room multiple times in the past for similar symptoms. The patient has had multiple cardiac workups which have been negative. The patient states that tonight he got home from work and was feeling anxious. He states that he started to get some tingling in his left arm and came to the ER for evaluation. He denies any active chest pain or shortness of breath at this time. ROS All systems reviewed and are negative except as per history of present illness. Medications Home Meds Reported Medications Lorazepam* (Lorazepam*) 1 Mg Tablet, 0.5 MG PO HS Y for ANXIETY, #30 TAB 11/27/16 Metformin Hcl* (Metformin Hcl*) 1,000 Mg Tablet, 1000 MG PO WITH BREAKFAST DINNE , #60 TAB 11/27/16 Glipizide* (Glipizide*) 5 Mg Tablet, 5 MG PO AC BREAKFAST Y for PRN, TAB 11/27/16 Gabapentin* (Gabapentin*) 300 Mg Capsule, 300 MG PO QHS, #60 CAP 11/27/16 Aspirin* (Aspirin* Chew) 81 Mg Tab.chew, 81 MG PO DAILY, TAB.CHEW 11/12/15 Lisinopril* (Lisinopril*) 5 Mg Tablet, 5 MG PO DAILY, #30 TAB 11/12/15 Allergies Allergies: Coded Allergies: No Known Drug Allergies (Verified Allergy, Mild, 11/27/16) PMhx/Soc History of Surgery: No Anesthesia Reaction: No Hx Neurological Disorder: No Hx Respiratory Disorders: No Hx Cardiac Disorders: Yes (htn, dm, high cholesterol) Hx Psychiatric Problems: Yes (anxiety) Hx Miscellaneous Medical Probl: Yes (anxiety) Hx Alcohol Use: No Hx Substance Use: No Hx Tobacco Use: No Physical Exam Vitals Vital Signs Date Time Temp Pulse Resp B/P Pulse Ox O2 Delivery O2 Flow Rate FiO2 01/04/17 02:39 97.2 67 18 123/79 97 Physical Exam INITIAL VITAL SIGNS: Reviewed by me GENERAL: The patient is well developed and appropriate for usual state of health in no apparent distress HEENT: Pupils equal, round, and reactive to light. EOMI. There is no scleral icterus. NECK: C-spine is soft and supple, there is no meningismus. There is no cervical lymphadenopathy. LUNGS: Clear to auscultation bilaterally. There are no rales, wheezes or rhonchi. HEART: Regular rate and rhythm, no murmurs, clicks, rubs or gallops. ABDOMEN: Soft, non-tender, non-distended. There are bowel sounds in all four quadrants. No rebound or guarding. EXTREMITIES: There is no peripheral cyanosis or edema. No focal swelling or erythema. NEUROLOGICAL: The patient moves all four extremities with 5/5 strength. Cranial nerves II - XII are intact. Normal gait. Alert and oriented SKIN: There is no apparent rash or petechiae. HEME/LYMPHATIC: There is no evidence of excessive bruising or lymphedema. PSYCHIATRIC: The patient does have an anxious affect Procedures/MDM EKG: Rate/Rhythm: [Normal Sinus Rhythm] QRS, ST, T-waves: [No changes consistent w/ acute ischemia] Impression: [No evidence of ischemia or arrhythmia] This 36-year-old male presents to the emergency room for evaluation of left arm numbness. The patient does have a previous history of anxiety with multiple emergency room visits for such. The patient was mildly anxious on my examination. I did obtain an EKG on this patient and it showed a normal sinus rhythm. This patient had a negative cardiac workup done in October of this year. This patient is not hypoxic, no respiratory distress, and he is hemodynamically stable at this time. I have counseled this patient verbally and the patient does state he is feeling better at this time. This patient will be discharged. Departure Diagnosis: Primary Impression: Anxiety attack Condition: Stable JERAMIE COLUNGA Jan 04, 2017 03:05
[2017-01-04 03:14] VITALS: BP 125/80; PULSE 80; RESP 18; TEMP 98.6
== END 2017-01-04 03:20 | disposition home or self-care (01) ==
LOC: E/R 02:33
DX: F41.9 Anxiety disorder, unspecified (principal); E11.9 Type 2 diabetes mellitus without complications; I10 Essential (primary) hypertension; Z79.82 Long term (current) use of aspirin; Z79.84 Long term (current) use of oral hypoglycemic drugs
CPT/HCPCS: 93005; Z7502

== ENCOUNTER 2017-02-07 03:47 | Emergency (ER) | payer OTHER ==
[~2017-02-07] VITALS: Wt 102.5 kg
--- NOTE | 2017-02-07 04:09 | ERA ---
ER Documentation Chief Complaint Date/Time DATE: 02/07/17 TIME: 04:08 Chief Complaint AP x2 months HPI The patient is a 36-year-old male, presenting with intermittent left-sided abdominal pain for more than 2 months, worse today, associated with constipation. He denies fever, chills, neck pain, chest pain, dyspnea, vomiting , dysuria. He does not smoke nor drink nor does illicit drug Past medical history: Hypertension, diabetes mellitus, anxiety, dyslipidemia Past surgical history: None ROS All systems reviewed and are negative except as per history of present illness. Medications Home Meds Active Scripts Bisacodyl* (Dulcolax*) 5 Mg Tablet.dr, 10 MG [place] DAILY Y for CONSTIPATION, #10 TAB Prov:JONATHAN DELGADO MD 02/07/17 Polyethylene Glycol* (Miralax*) 17 Gm Powd.pack, 17 GM PO DAILY, #7 Prov:JONATHAN DELGADO MD 02/07/17 Ibuprofen* (Motrin*) 600 Mg Tab, 600 MG PO Q6, #20 TAB Prov:JONATHAN DELGADO MD 02/07/17 Reported Medications Lorazepam* (Lorazepam*) 1 Mg Tablet, 0.5 MG PO HS Y for ANXIETY, #30 TAB 11/27/16 Metformin Hcl* (Metformin Hcl*) 1,000 Mg Tablet, 1000 MG PO WITH BREAKFAST DINNE , #60 TAB 11/27/16 Glipizide* (Glipizide*) 5 Mg Tablet, 5 MG PO AC BREAKFAST Y for PRN, TAB 11/27/16 Gabapentin* (Gabapentin*) 300 Mg Capsule, 300 MG PO QHS, #60 CAP 11/27/16 Aspirin* (Aspirin* Chew) 81 Mg Tab.chew, 81 MG PO DAILY, TAB.CHEW 11/12/15 Lisinopril* (Lisinopril*) 5 Mg Tablet, 5 MG PO DAILY, #30 TAB 11/12/15 Allergies Allergies: Coded Allergies: No Known Drug Allergies (Verified Allergy, Mild, 11/27/16) PMhx/Soc History of Surgery: No Anesthesia Reaction: No Hx Neurological Disorder: No Hx Respiratory Disorders: No Hx Cardiac Disorders: Yes (htn, dm, high cholesterol) Hx Psychiatric Problems: Yes (anxiety) Hx Miscellaneous Medical Probl: Yes (anxiety) Hx Alcohol Use: No Hx Substance Use: No Hx Tobacco Use: No Physical Exam Vitals Vital Signs Date Time Temp Pulse Resp B/P Pulse Ox O2 Delivery O2 Flow Rate FiO2 02/07/17 03:54 97.5 73 20 140/94 99 Physical Exam Const: No acute distress. Head: Atraumatic. Eyes: Normal Conjunctiva. ENT: Normal External Ears, Nose and Mouth. Neck: Full range of motion. No meningismus. Resp: Clear to auscultation bilaterally. Cardio: Regular rate and rhythm. Abd: Soft, non distended, normal bowel sounds, non tender. Skin: No petechiae or rashes. Back: No midline or flank tenderness. Ext: No cyanosis, or edema. Neur: Awake and alert. No focal deficit Psych: Normal Mood and Affect. Results 24 hrs Current Medications Medications (Trade) Dose Ordered Sig/Kp Route PRN Reason Start Time Stop Time Status Last Admin Dose Admin Tramadol HCl (Ultram) 50 mg ONCE ONCE PO 02/07/17 04:30 02/07/17 04:31 Procedures/MDM MEDICAL MAKING DECISION: The patient is a 35-year-old male, presenting with acute on chronic abdominal pain, most likely due to constipation. He was treated with Ultram for pain with good response The differential diagnoses considered include but are not limited to inguinal hernia incarceration/strangulation, cholelithiasis, cholecystitis, cystitis, pancreatitis, hepatitis, gastritis, peptic ulcer disease, gastric ulcer, appendicitis, diverticulitis, cholangitis, choledocholithiasis, partial small bowel obstruction. Departure Diagnosis: Primary Impression: Constipation Condition: Good Comments He was discharged with Motrin, MiraLAX, Dulcolax suppository I discussed the findings with the patient. I advised the patient to follow-up with the primary physician in about 1-2 days, sooner if needed and return if any concern. JONATHAN DELGADO MD Feb 07, 2017 04:09
[2017-02-07] MEDS ORDERED: IBUP-1542 PO (04:20)
[2017-02-07] MEDS ORDERED: POLY17PO6 PO (04:21)
[2017-02-07] MEDS ORDERED: BISA-57 PR (04:22)
[2017-02-07] MEDS ORDERED: traMADol 50 MG TAB PO ONE (04:30)
[2017-02-07 05:06] VITALS: BP 105/63; PULSE 68; RESP 16
== END 2017-02-07 05:08 | disposition home or self-care (01) ==
LOC: E/R 03:47
DX: K59.00 Constipation, unspecified (principal); I10 Essential (primary) hypertension; E11.9 Type 2 diabetes mellitus without complications; Z79.82 Long term (current) use of aspirin; Z79.84 Long term (current) use of oral hypoglycemic drugs
CPT/HCPCS: Z7502; Z7610; 99283

== ENCOUNTER 2017-02-09 19:41 | Emergency (ER) | payer SELFPAY ==
[~2017-02-09] VITALS: Ht 172.7 cm; Wt 106.8 kg
[~2017-02-09 19:41] MED LIST changes: +BISA-57 PR; +IBUP-1542 PO; +POLY17PO6 PO
[2017-02-09 19:50] VITALS: Ht 172.7 cm; Wt 106.8 kg
== END 2017-02-09 22:43 | disposition left against medical advice (07) ==
LOC: E/R 19:41
DX: Z53.21 Procedure and treatment not carried out due to patient leaving prior to being seen by health care provider (principal)
CPT/HCPCS: 93005

== ENCOUNTER 2017-03-20 00:09 | Emergency (ER) | payer SELFPAY ==
[~2017-03-20] VITALS: Ht 165.1 cm; Wt 103.0 kg
[2017-03-20 00:13] VITALS: Ht 165.1 cm; Wt 103.0 kg
== END 2017-03-20 01:21 | disposition left against medical advice (07) ==
LOC: E/R 00:09
DX: Z53.21 Procedure and treatment not carried out due to patient leaving prior to being seen by health care provider (principal)

== ENCOUNTER 2017-03-31 00:32 | Emergency (ER) | payer OTHER ==
[~2017-03-31] VITALS: Ht 172.7 cm; Wt 104.1 kg
[2017-03-31 00:47] VITALS: Ht 172.7 cm; Wt 104.1 kg
--- NOTE | 2017-03-31 01:45 | RADRPT ---
PROCEDURE: Chest. CLINICAL INDICATION: Chest pain. TECHNIQUE: Single frontal view of the chest was obtained. COMPARISON: 11/27/2016. FINDINGS: The cardiac silhouette is within normal limits. The aortic arch is unremarkable. There is no focal consolidation, vascular congestion or pleural effusion. There is no pneumothorax. IMPRESSION: No evidence for active cardiopulmonary disease. .Indra Roy MD, MD Date Time Electronically viewed and signed by .Indra Roy MD, MD on 03/31/2017 01:45 .T/
[2017-03-31 01:46] LABS: BASOPHIL # 0.1 10^3/ul (0.0-0.1); BASOPHILS % 0.7 % (0.0-2.0); EOSINOPHILS # 0.5 10^3/ul (0.0-0.5); EOSINOPHILS % 5.4 % (0.0-7.0); HEMATOCRIT 45.9 % (42.0-52.0); HEMOGLOBIN 15.4 g/dl (14.0-18.0); LYMPHOCYTES # 3.6 10^3/ul (0.8-2.9); LYMPHOCYTES % 40.7 % (15.0-51.0); MEAN CORPUSCULAR HEMOGLOBIN 27.9 pg (29.0-33.0); MEAN CORPUSCULAR HGB CONC 33.6 g/dl (32.0-37.0); MEAN CORPUSCULAR VOLUME 83.3 fl (82.0-101.0); MONOCYTE # 0.6 10^3/ul (0.3-0.9); MONOCYTES % 6.5 % (0.0-11.0); NEUTROPHIL # 4.1 10^3/ul (1.6-7.5); NEUTROPHILS % 46.4 % (39.0-77.0); PLATELET COUNT 223 10^3/UL (140-415); RED BLOOD COUNT 5.51 10^6/ul (4.70-6.10); RED CELL DISTRIBUTION WIDTH 12.6 % (11.5-14.5); WHITE BLOOD COUNT 8.7 10^3/ul (4.8-10.8)
--- NOTE | 2017-03-31 02:04 | ERD ---
ER Documentation Chief Complaint Chief Complaint CP, SOB x2hrs [employer]. Cardiac hx +stress test, scheduled angiogram on 04/01/17 HPI This is a 36-year-old no chest pain shortness breath for 2 hours prior to arrival. Patient has a history of positive stress test and scheduled for angiogram on April 01. Pain is mild to moderate intensity with no exacerbating the pain is substernal with no radiations. Associated shortness of breath. Associated diaphoresis. ROS All systems reviewed and are negative except as per history of present illness. Medications Home Meds Active Scripts Bisacodyl* (Dulcolax*) 5 Mg Tablet.dr, 10 MG [place] DAILY Y for CONSTIPATION, #10 TAB Prov:JONATHAN DELGADO MD 02/07/17 Polyethylene Glycol* (Miralax*) 17 Gm Powd.pack, 17 GM PO DAILY, #7 Prov:JONATHAN DELGADO MD 02/07/17 Ibuprofen* (Motrin*) 600 Mg Tab, 600 MG PO Q6, #20 TAB Prov:JONATHAN DELGADO MD 02/07/17 Reported Medications Lorazepam* (Lorazepam*) 1 Mg Tablet, 0.5 MG PO HS Y for ANXIETY, #30 TAB 11/27/16 Metformin Hcl* (Metformin Hcl*) 1,000 Mg Tablet, 1000 MG PO WITH BREAKFAST DINNE , #60 TAB 11/27/16 Glipizide* (Glipizide*) 5 Mg Tablet, 5 MG PO AC BREAKFAST Y for PRN, TAB 11/27/16 Gabapentin* (Gabapentin*) 300 Mg Capsule, 300 MG PO QHS, #60 CAP 11/27/16 Aspirin* (Aspirin* Chew) 81 Mg Tab.chew, 81 MG PO DAILY, TAB.CHEW 11/12/15 Lisinopril* (Lisinopril*) 5 Mg Tablet, 5 MG PO DAILY, #30 TAB 11/12/15 Allergies Allergies: Coded Allergies: No Known Drug Allergies (Verified Allergy, Mild, 03/31/17) PMhx/Soc History of Surgery: No Anesthesia Reaction: No Hx Neurological Disorder: No Hx Respiratory Disorders: No Hx Cardiac Disorders: Yes (htn, dm, high cholesterol) Hx Psychiatric Problems: Yes (anxiety) Hx Miscellaneous Medical Probl: Yes (anxiety) Hx Alcohol Use: No Hx Substance Use: No Hx Tobacco Use: No Smoking Status: Never smoker Physical Exam Vitals Vital Signs Date Time Temp Pulse Resp B/P Pulse Ox O2 Delivery O2 Flow Rate FiO2 03/31/17 01:50 74 16 125/80 98 Room Air 03/31/17 00:47 98.1 79 18 143/83 97 Physical Exam Const: [] Head: Atraumatic Eyes: Normal Conjunctiva ENT: Normal External Ears, Nose and Mouth. Neck: Full range of motion..~ No meningismus. Resp: Clear to auscultation bilaterally Cardio: Regular rate and rhythm, no murmurs Abd: Soft, non tender, non distended. Normal bowel sounds Skin: No petechiae or rashes Back: No midline or flank tenderness Ext: No cyanosis, or edema Neur: Awake and alert Psych: Normal Mood and Affect Result Diagram: 03/31/17 0120 Results 24 hrs Laboratory Tests Test 03/31/17 01:19 03/31/17 01:20 Bedside Glucose 246mg/dL White Blood Count 8.710^3/ul Red Blood Count 5.5110^6/ul Hemoglobin 15.4g/dl Hematocrit 45.9% Mean Corpuscular Volume 83.3fl Mean Corpuscular Hemoglobin 27.9pg Mean Corpuscular Hemoglobin Concent 33.6g/dl Red Cell Distribution Width 12.6% Platelet Count 66968^3/UL Mean Platelet Volume 11.0fl Neutrophils % 46.4% Lymphocytes % 40.7% Monocytes % 6.5% Eosinophils % 5.4% Basophils % 0.7% Nucleated Red Blood Cells % 0.0/100WBC Neutrophils # 4.110^3/ul Lymphocytes # 3.610^3/ul Monocytes # 0.610^3/ul Eosinophils # 0.510^3/ul Basophils # 0.110^3/ul Nucleated Red Blood Cells # 0.010^3/ul Procedures/MDM EKG: Rate/Rhythm: [Normal Sinus Rhythm] QRS, ST, T-waves: [No changes consistent w/ acute ischemia] Impression: [No evidence of ischemia or arrhythmia] Chest X-ray 1V Interpreted by me: Soft Tissue: No acute abnormalities Bones: No acute abnormalities Mediastinum/Cardiac Silhouette/Lungs: [No acute abnormalities] Patient's symptoms are concerning for cardiac cause will require inpatient workup and continuous monitoring. Further w/u for ischemia, arrhythmia, PE or dissection will be deferred to the inpatient team. Accepting Care Team: Current data and ongoing care discussed. Time: 1:30 AM Primary Provider: Dr. Gonzales Consulting: [[employer]] Outstanding Data: none Departure Diagnosis: Primary Impression: Chest pain Chest pain type: chest pain due to myocardial ischemia Ischemic chest pain type: unspecified angina pectoris type Qualified Code: I20.9 - Chest pain due to myocardial ischemia, unspecified ischemic chest pain type Condition: Serious CHANTAL EARL Mar 31, 2017 02:04
[2017-03-31 02:05] LABS: ALANINE AMINOTRANSFERASE 127 IU/L (13-69); ALBUMIN 4.4 g/dl (3.3-4.9); ALBUMIN/GLOBULIN RATIO 1.18; ALKALINE PHOSPHATASE 87 IU/L (42-121); ANION GAP 15 (8-16); ASPARTATE AMINO TRANSFERASE 44 IU/L (15-46); BILIRUBIN,INDIRECT 0.1 mg/dl (0-1.1); BILIRUBIN,TOTAL 0.1 mg/dl (0.2-1.3); BLOOD UREA NITROGEN 17 mg/dl (7-20); CALCIUM 9.9 mg/dl (8.4-10.2); CARBON DIOXIDE 29 mmol/L (21-31); CHLORIDE 99 mmol/L (97-110); CREATININE 0.88 mg/dl (0.61-1.24); GLUCOSE 243 mg/dl (70-220); SODIUM 139 mmol/L (135-144); TOTAL PROTEIN 8.1 g/dl (6.1-8.1)
[2017-03-31] MEDS ORDERED: SOD CHLORIDE 0.9% 1,000 ML IV SCH (02:09)
[2017-03-31 02:18] LABS: B-TYPE NATRIURETIC PEPTIDE < 11 PG/ML (0-125); TROPONIN-I < 0.012 ng/ml (0.00-0.12)
[2017-03-31] MEDS ORDERED: NITROGLYCERIN (SL) 0.4 MG TAB SL PRN (02:30)
[2017-03-31] MEDS ORDERED: GLUCOSE GEL 15 GRAM TUBE BUCCAL PRN (02:30)
[2017-03-31] MEDS ORDERED: DOCUSATE SODIUM 100 MG CAP PO PRN (02:30)
[2017-03-31] MEDS ORDERED: GLUCAGON 1 MG INJ IM PRN (02:30)
[2017-03-31] MEDS ORDERED: ACETAMINOPHEN 325 MG TAB PO PRN (02:30)
[2017-03-31] MEDS ORDERED: DEXTROSE 50% 50 ML SYRINGE IV PRN ×2 (02:30)
[2017-03-31] MEDS ORDERED: ONDANSETRON 4 MG INJ IV PRN (02:30)
[2017-03-31] MEDS ORDERED: GLUCOSE GEL 15 GRAM TUBE PO PRN ×2 (02:30)
[2017-03-31] MEDS ORDERED: BISACODYL (EC) 5 MG TAB PO PRN (02:30)
[2017-03-31] MEDS ORDERED: NACL 0.9% 3 ML SYG IV SCH (02:30)
[2017-03-31] MEDS ORDERED: LORAZEPAM 1 MG TAB PO PRN (02:30)
[2017-03-31 06:00] VITALS: BP 117/72; PULSE 66; RESP 13
[2017-03-31] MEDS ORDERED: PANTOPRAZOLE 40 MG INJ IV SCH (06:00)
[2017-03-31 06:57] LABS: BASOPHIL # 0.1 10^3/ul (0.0-0.1); BASOPHILS % 1.1 % (0.0-2.0); EOSINOPHILS # 0.6 10^3/ul (0.0-0.5); EOSINOPHILS % 6.8 % (0.0-7.0); HEMATOCRIT 45.7 % (42.0-52.0); HEMOGLOBIN 14.7 g/dl (14.0-18.0); LYMPHOCYTES # 4.2 10^3/ul (0.8-2.9); LYMPHOCYTES % 46.7 % (15.0-51.0); MEAN CORPUSCULAR HEMOGLOBIN 27.2 pg (29.0-33.0); MEAN CORPUSCULAR HGB CONC 32.2 g/dl (32.0-37.0); MEAN CORPUSCULAR VOLUME 84.5 fl (82.0-101.0); MEAN PLATELET VOLUME 11.3 fl (7.4-10.4); MONOCYTE # 0.7 10^3/ul (0.3-0.9); MONOCYTES % 7.3 % (0.0-11.0); NEUTROPHIL # 3.4 10^3/ul (1.6-7.5); NEUTROPHILS % 37.9 % (39.0-77.0); PLATELET COUNT 212 10^3/UL (140-415); RED BLOOD COUNT 5.41 10^6/ul (4.70-6.10)
--- NOTE | 2017-03-31 07:05 | HP ---
Date/Time of Note Date/Time of Note DATE: 03/31/17 TIME: 07:01 Assessment/Plan VTE Prophylaxis VTE Prophylaxis Intervention: SCD's Lines/Catheters IV Catheter Type (from Nrs): Saline Lock Assessment/Plan Chief Complaint/Hosp Course This is a 36-year-old male being admitted to the telemetry floor for: #1 chest pain: Rule out ACS versus hyperglycemic episode versus anxiety: Patient has history of abnormal stress test and is scheduled for catheterization on 04/[address] Jimenez. Patient did not take his diabetes medications for approximately 2 days and blood sugars were around 240s. The symptoms could be secondary to that however based on his cardiac history we will trend cardiac troponins 3. I will defer further imaging to the marble supervisor. #2 diabetes mellitus: We will check a hemoglobin A1c palpation on insulin sliding scale, will hold metformin and glipizide #3 hypertension: We will continue patient's home medication #4 anxiety: Patient's episode also could be anxiety related. We will continue patient benzo. Further treatment strategy will be implemented as per the clinical course Problems: HPI/ROS Admit Date/Time Admit Date/Time Hx of Present Illness Chief complaint: Chest pain, headache This is a 36-year-old who presents with chest pain shortness breath for 2 hours prior to arrival. Pain is mild to moderate intensity with no exacerbating the pain is substernal with no radiations. Associated shortness of breath. Associated diaphoresis. He states that his blood sugar was elevated in the 240s approximately and he has not been able to take his medications as he ran out of them approximately 2 days ago. At the current time his symptoms have resolved. Of note patient had previous abnormal stress test and was scheduled to have cardiac catheterization by Dr. Jimenez on 04/01 2017 at [facility]. Allergies: NKDA Medications: See MAR ROS Const: As per HPI Eyes : No pain discharge or redness or change in visual acuity ENT: No pain, sore throat, congestion, congestion, dysphagia or discharge Respiratory: No shortness of breath, cough, sputum, wheezing, or pleuritic pain Cardiovascular: As per HPI GI : no change in appetite, abdominal pain, nausea, vomiting, diarrhea, constipation, or change in the color his stool Genitourinary: No dysuria, hematuria, flank pain , discharge or CVA tenderness Musculoskeletal: No joint pain, back pain, neck pain, restricted range of motion in neck or joints Skin: No rash, bruising or hives Neuro: No headache, dizziness, syncope, seizure, focal weakness Endocrine: No polyuria, polydipsia, temperature intolerance Psych: No hallucination, depression, anxiety or suicidal ideation PMH/Family/Social Past Medical History Hypertension, diabetes mellitus Past Surgical History Past Surgical Hx: no surgical history Family History Significant Family History: no pertinent family hx Social History Alcohol Use: none Smoking Status: Never smoker Drug Use: none Exam/Review of Systems Vital Signs Vitals Vital Signs Date Time Temp Pulse Resp B/P Pulse Ox O2 Delivery O2 Flow Rate FiO2 03/31/17 06:00 66 13 117/72 97 Room Air 03/31/17 00:47 98.1 Exam Exam General: Patient is an obese male lying in bed in no acute distress HEENT: Atraumatic, normocephalic. The pupils are equal, round and reactive. Extraocular motor are intact Neck: Supple with full range of motion. No rigidity or meningismus Chest: Nontender Lungs: Clear to auscultation bilaterally no crackles rales or wheezing Heart: Normal S1-S2, Regular rhythm and rate. No overt murmurs appreciated Abdomen: Soft , nontender, nondistended , bowel sounds are present. No guarding no rebound tenderness , No masses or organomegaly. No costovertebral temporal angle mass Extremities: Normal to inspection, no edema no cyanosis Neurologic: Normal mental status, speech normal, cranial nerves II through XII are intact, motor and sensory are intact, no focal weakness Additional Comments PROCEDURE: Chest. CLINICAL INDICATION: Chest pain. TECHNIQUE: Single frontal view of the chest was obtained. COMPARISON: 11/27/2016. FINDINGS: The cardiac silhouette is within normal limits. The aortic arch is unremarkable. There is no focal consolidation, vascular congestion or pleural effusion. There is no pneumothorax. IMPRESSION: No evidence for active cardiopulmonary disease. .Indra Roy MD, MD Date Time Electronically viewed and signed by .Indra Roy MD, MD on 03/31/2017 01:45 .T/ CC: CHANTAL EARL EKG: Rate/Rhythm: [Normal Sinus Rhythm] QRS, ST, T-waves: [No changes consistent w/ acute ischemia] Impression: [No evidence of ischemia or arrhythmia] as per ED physician documentation Labs Result Diagram: 03/31/17 0527 03/31/17 0120 Medications Medications Current Medications Sodium Chloride (NS) 1,000 ml @ 70 mls/hr [id number] IV Last administered on 02:40; Admin Dose 70 MLS/HR; Start 03/31/17 at 02:09 Ondansetron HCl (Zofran Inj) 4 mg Q6H PRN IV NAUSEA AND/OR VOMITING; Start at 02:30 Nitroglycerin (Nitroglycerin (Sl Tab) 0.4 Mg) 1 tab Q5M PRN SL CHEST PAIN; Start 03/31/17 at 02:30 Acetaminophen (Tylenol Tab) 650 mg Q6H PRN PO PAIN LEVEL 1-3 OR FEVER; Start 03/31/17 at 02:30 Docusate Sodium (Colace) 100 mg Q12H PRN PO CONSTIPATION; Start 03/31/17 at 02 :30 Bisacodyl (Dulcolax) 5 mg DAILY PRN PO CONSTIPATION; Start 03/31/17 at 02:30 Pantoprazole (Protonix Iv) 40 mg DAILY@06 IV Last administered on 03/31/17 05 :34; Admin Dose 40 MG; Start 03/31/17 at 06:00 Aspirin (Aspirin) 81 mg DAILY PO ; Start 03/31/17 at 09:00 Gabapentin (Neurontin) 300 mg QHS PO ; Start 03/31/17 at 21:00 Lisinopril (Zestril) 5 mg DAILY PO ; Start 03/31/17 at 09:00 Lorazepam (Ativan) 0.5 mg HS PRN PO ANXIETY; Start 03/31/17 at 02:30 Diagnostic Test (Pha) (Accu-Chek) 1 ea 02 XX ; Start 04/01/17 at 02:00 Miscellaneous Information 1 ea NOTE XX ; Start 03/31/17 at 02:30 Glucose (Glutose) 15 gm Q15M PRN PO DECREASED GLUCOSE; Start 03/31/17 at 02:30 Glucose (Glutose) 22.5 gm Q15M PRN PO DECREASED GLUCOSE; Start 03/31/17 at 02: 30 Dextrose (D50w Syringe) 25 ml Q15M PRN IV DECREASED GLUCOSE; Start 03/31/17 at 02:30 Dextrose (D50w Syringe) 50 ml Q15M PRN IV DECREASED GLUCOSE; Start 03/31/17 at 02:30 Glucagon (Glucagen) 1 mg Q15M PRN IM DECREASED GLUCOSE; Start 03/31/17 at 02: 30 Glucose (Glutose) 15 gm Q15M PRN BUCCAL DECREASED GLUCOSE; Start 03/31/17 at 02:30 JAROCHO CRAWFORD Mar 31, 2017 07:05
[2017-03-31 07:15] LABS: CREATINE KINASE 87 IU/L (23-200)
[2017-03-31 07:24] LABS: ALBUMIN 4.4 g/dl (3.3-4.9); ALBUMIN/GLOBULIN RATIO 1.83; BILIRUBIN,INDIRECT 0.1 mg/dl (0-1.1); BILIRUBIN,TOTAL 0.1 mg/dl (0.2-1.3); CALCIUM 9.1 mg/dl (8.4-10.2); CREATININE 0.79 mg/dl (0.61-1.24); POTASSIUM 4.2 mmol/L (3.5-5.1); TOTAL PROTEIN 6.8 g/dl (6.1-8.1)
[2017-03-31 07:39] LABS: CK-MB 0.66 ng/ml (0.0-2.4); TROPONIN-I < 0.012 ng/ml (0.00-0.12)
[2017-03-31] MEDS ORDERED: INSULIN ASPART [NOVOLOG] 3 ML PEN SC SCH (08:00)
[2017-03-31 08:24] LABS: CHOL/HDL RATIO 6.7 RATIO
[2017-03-31] MEDS ORDERED: ASPIRIN 81 MG TAB PO SCH (09:00)
[2017-03-31] MEDS ORDERED: LISINOPRIL 5 MG TAB PO SCH (09:00)
[2017-03-31 09:34] LABS: CREATINE KINASE 77 IU/L (23-200)
[2017-03-31 10:11] LABS: CK-MB 0.62 ng/ml (0.0-2.4); TROPONIN-I < 0.012 ng/ml (0.00-0.12)
--- NOTE | 2017-03-31 12:00 | DS ---
Date/Time of Note Date/Time of Note DATE: 03/31/17 TIME: 11:58 Discharge Summary Admission/Discharge Info Admit Date/Time Discharge Date/Time Discharge Diagnosis 1. Chest pain. 2. Type 2 diabetes mellitus. 3. Essential hypertension. 4. Anxiety. 5. Obesity. Patient Condition: Fair Procedures CXR IMPRESSION: No evidence for active cardiopulmonary disease. Hx of Present Illness Chief complaint: Chest pain, headache This is a 36-year-old who presented with chest pain shortness breath for 2 hours prior to arrival. Pain was mild to moderate intensity with no exacerbating factors. The pain was substernal with no radiations, associated shortness of breath,or associated diaphoresis. He stated that his blood sugar was elevated in the 240s approximately and he has not been able to take his medications as he ran out of them approximately 2 days ago. Of note patient had previous abnormal stress test and was scheduled to have cardiac catheterization by Dr. Jimenez on 04/01/[address] [facility]. Allergies: NKDA Medications: See [facility] Hospital Course The patient had admission orders for inpatient stay to be evaluated by cardiology because of his reported abnormal stress test as outpatient. The patient wanted to leave the hospital AGAINST MEDICAL ADVICE. The patient was informed about the consequences of leaving the hospital AGAINST MEDICAL ADVICE including the possibility of . Nevertheless, the patient left the hospital AGAINST MEDICAL ADVICE. No discharge planning was done since the patient left the hospital AGAINST MEDICAL ADVICE. Case discussed with Dr. Almaguer. Home Meds Active Scripts Bisacodyl* (Dulcolax*) 5 Mg Tablet., 10 MG MO DAILY Y for CONSTIPATION, #10 TAB Prov:JONATHAN DELGADO MD 02/07/17 Polyethylene Glycol* (Miralax*) 17 Gm Powd.pack, 17 GM PO DAILY, #7 Prov:JONATHAN DELGADO MD 02/07/17 Ibuprofen* (Motrin*) 600 Mg Tab, 600 MG PO Q6, #20 TAB Prov:JONATHAN DELGADO MD 02/07/17 Reported Medications Lorazepam* (Lorazepam*) 1 Mg Tablet, 0.5 MG PO HS Y for ANXIETY, #30 TAB 11/27/16 Metformin Hcl* (Metformin Hcl*) 1,000 Mg Tablet, 1000 MG PO WITH BREAKFAST DINNE , #60 TAB 11/27/16 Glipizide* (Glipizide*) 5 Mg Tablet, 5 MG PO AC BREAKFAST Y for PRN, TAB 11/27/16 Gabapentin* (Gabapentin*) 300 Mg Capsule, 300 MG PO QHS, #60 CAP 11/27/16 Aspirin* (Aspirin* Chew) 81 Mg Tab.chew, 81 MG PO DAILY, TAB.CHEW 11/12/15 Lisinopril* (Lisinopril*) 5 Mg Tablet, 5 MG PO DAILY, #30 TAB 11/12/15 Primary Care Provider Care Physician No Primary Time spent on discharge: < 30 minutes Pending Labs Laboratory Tests Test 03/31/17 01:19 03/31/17 01:20 03/31/17 05:27 03/31/17 05:37 Bedside Glucose 246mg/dL (70-220) 97mg/dL (70-220) White Blood Count 8.710^3/ul (4.8-10.8) 9.010^3/ul (4.8-10.8) Red Blood Count 5.5110^6/ul (4.70-6.10) 5.4110^6/ul (4.70-6.10) Hemoglobin 15.4g/dl (14.0-18.0) 14.7g/dl (14.0-18.0) Hematocrit 45.9% (42.0-52.0) 45.7% (42.0-52.0) Mean Corpuscular Volume 83.3fl (82.0-101.0) 84.5fl (82.0-101.0) Mean Corpuscular Hemoglobin 27.9pg (29.0-33.0) 27.2pg (29.0-33.0) Mean Corpuscular Hemoglobin Concent 33.6g/dl (32.0-37.0) 32.2g/dl (32.0-37.0) Red Cell Distribution Width 12.6% (11.5-14.5) 13.0% (11.5-14.5) Platelet Count 82302^3/UL (140-415) 64359^3/UL (140-415) Mean Platelet Volume 11.0fl (7.4-10.4) 11.3fl (7.4-10.4) Neutrophils % 46.4% (39.0-77.0) 37.9% (39.0-77.0) Lymphocytes % 40.7% (15.0-51.0) 46.7% (15.0-51.0) Monocytes % 6.5% (0.0-11.0) 7.3% (0.0-11.0) Eosinophils % 5.4% (0.0-7.0) 6.8% (0.0-7.0) Basophils % 0.7% (0.0-2.0) 1.1% (0.0-2.0) Nucleated Red Blood Cells % 0.0/100WBC (0.0-0.0) 0.0/100WBC (0.0-0.0) Neutrophils # 4.110^3/ul (1.6-7.5) 3.410^3/ul (1.6-7.5) Lymphocytes # 3.610^3/ul (0.8-2.9) 4.210^3/ul (0.8-2.9) Monocytes # 0.610^3/ul (0.3-0.9) 0.710^3/ul (0.3-0.9) Eosinophils # 0.510^3/ul (0.0-0.5) 0.610^3/ul (0.0-0.5) Basophils # 0.110^3/ul (0.0-0.1) 0.110^3/ul (0.0-0.1) Nucleated Red Blood Cells # 0.010^3/ul (0.0-0.0) 0.010^3/ul (0.0-0.0) Sodium Level 139mmol/L (135-144) 142mmol/L (135-144) Potassium Level 4.0mmol/L (3.5-5.1) 4.2mmol/L (3.5-5.1) Chloride Level 99mmol/L (97-110) 102mmol/L (97-110) Carbon Dioxide Level 29mmol/L (21-31) 27mmol/L (21-31) Anion Gap 15 (8-16) 17 (8-16) Blood Urea Nitrogen 17mg/dl (7-20) 14mg/dl (7-20) Creatinine 0.88mg/dl (0.61-1.24) 0.79mg/dl (0.61-1.24) Glucose Level 243mg/dl (70-220) 89mg/dl (70-220) Calcium Level 9.9mg/dl (8.4-10.2) 9.1mg/dl (8.4-10.2) Total Bilirubin 0.1mg/dl (0.2-1.3) 0.1mg/dl (0.2-1.3) Direct Bilirubin 0.00mg/dl (0.00-0.20) 0.00mg/dl (0.00-0.20) Indirect Bilirubin 0.1mg/dl (0-1.1) 0.1mg/dl (0-1.1) Aspartate Amino Transf (AST/SGOT) 44IU/L (15-46) 37IU/L (15-46) Alanine Aminotransferase (ALT/SGPT) 127IU/L (13-69) 103IU/L (13-69) Alkaline Phosphatase 87IU/L (42-121) 77IU/L (42-121) Troponin I < 0.012ng/ml (0.00-0.12) < 0.012ng/ml (0.00-0.12) B-Type Natriuretic Peptide < 11PG/ML (0-125) Total Protein 8.1g/dl (6.1-8.1) 6.8g/dl (6.1-8.1) Albumin 4.4g/dl (3.3-4.9) 4.4g/dl (3.3-4.9) Globulin 3.70g/dl (1.3-3.2) 2.40g/dl (1.3-3.2) Albumin/Globulin Ratio 1.18 1.83 Hemoglobin A1c 8.9% (0-5.9) Magnesium Level 2.0mg/dl (1.7-2.5) Creatine Kinase 87IU/L (23-200) Creatine Kinase Index 0.8 Creatinine Kinase MB (Mass) 0.66ng/ml (0.0-2.4) Triglycerides Level 256mg/dl (0-149) Cholesterol Level 181mg/dl (100-200) LDL Cholesterol, Calculated 103mg/dl HDL Cholesterol 27mg/dl (28-63) Cholesterol/HDL Ratio 6.7RATIO Thyroid Stimulating Hormone (TSH) 4.070MIU/L (0.465-4.680) Test 03/31/17 09:01 Creatine Kinase 77IU/L (23-200) Creatine Kinase Index 0.8 Creatinine Kinase MB (Mass) 0.62ng/ml (0.0-2.4) Troponin I < 0.012ng/ml (0.00-0.12) MUMTAZ MANJARREZ NP Mar 31, 2017 12:00
[2017-03-31] MEDS ORDERED: GABAPENTIN 300 MG CAP PO SCH (21:00)
[2017-04-01] MEDS ORDERED: ACCU-CHEK XX SCH (02:00)
== END 2017-03-31 10:17 | disposition left against medical advice (07) ==
LOC: E/R 00:32 → FTE 10:17
DX: I20.9 Angina pectoris, unspecified (principal); I10 Essential (primary) hypertension; E11.9 Type 2 diabetes mellitus without complications; R06.02 Shortness of breath; Z79.82 Long term (current) use of aspirin; Z79.84 Long term (current) use of oral hypoglycemic drugs
CPT/HCPCS: 36415; 71010; 80053; 80061; 82550; 82553; 82962; 83036; 83735; 83880; 84443; 84484; 85025; 93005; 96374; C9113; J1815; J7030; Z7502; Z7610

== ENCOUNTER 2017-04-01 08:36 | Day surgery (SDC) | payer OTHER ==
[2017-04-01] VITALS (9 sets, daily range): BP systolic 91–129; BP diastolic 43–91; PULSE 69–88; RESP 14–18; Ht 172.7 cm; Wt 101.8 kg
[~2017-04-01] VITALS: Ht 172.7 cm; Wt 101.8 kg
[~2017-04-01 08:36] MED LIST changes: +DIAZEPAM 5 MG TAB PO PRN; +DIPHENHYDRAMINE 50 MG CAP PO PRN; +FAMOTIDINE 20 MG TAB PO ONE; +SOD CHLORIDE 0.45% 500 ML IV SCH
--- NOTE | 2017-04-01 09:09 | RADRPT ---
PROCEDURE: XR Chest. CLINICAL INDICATION: Preoperative evaluation. TECHNIQUE: Single frontal chest x-ray. COMPARISON: 03/31/2017 FINDINGS: The lungs are clear. No focal opacification is seen. No pneumothorax or pleural effusion is seen. The cardiomediastinal silhouette is unremarkable. The osseous structures are grossly unremarkable. IMPRESSION: No evidence of acute cardiopulmonary disease. RPTAT: JJ .Jamie Meneses MD, MD Date Time Electronically viewed and signed by .Jamie Meneses MD, on 04/01/2017 09:09 .A/
[2017-04-01] MEDS ORDERED: DIAZEPAM 5 MG TAB PO SCH (10:00)
[2017-04-01] MEDS ORDERED: FAMOTIDINE 20 MG TAB PO SCH (10:00)
[2017-04-01] MEDS ORDERED: SOD CHLORIDE 0.45% 1,000 ML IV SCH (10:00)
[2017-04-01] MEDS ORDERED: DIPHENHYDRAMINE 50 MG CAP PO SCH (10:00)
[2017-04-01] MEDS ORDERED: DIPHENHYDRAMINE 50 MG INJ ONE (10:23)
[2017-04-01] MEDS ORDERED: MIDAZOLAM 1 MG/ML 2 ML INJ ONE ×2 (11:17→12:29)
[2017-04-01] MEDS ORDERED: HEPARIN 1000 UNITS/ML 10 ML INJ ONE (11:17)
[2017-04-01] MEDS ORDERED: LIDOCAINE 1% (MDV) 20 ML INJ ONE (11:17)
[2017-04-01] MEDS ORDERED: VERAPAMIL 5 MG INJ ONE (11:18)
[2017-04-01] MEDS ORDERED: NITROGLYCERIN (IC) 100 MCG/ML INJ ONE (11:18)
[2017-04-01] MEDS ORDERED: FENTAnyl 50 MCG/ML VIAL ONE ×2 (11:18→12:29)
--- NOTE | 2017-04-01 12:25 | SIPON ---
Date/Time of Note Date/Time of Note DATE: 04/01/17 TIME: 12:23 Operative Report Preoperative Diagnosis 1.Chest pain 2.abnl mpi Postoperative Diagnosis 1.non-obsructive cad 2.low NL LVEDP Operation/Procedure Performed 1.[facility] Surgeon see signature line golf course assistant Rosanne Anesthesia: moderate sedation Estimated blood loss: minimal Transfusion Required none Specimen NA Grafts/Implants none Complications none BETHEL CABRERA Apr 01, 2017 12:25
--- NOTE | 2017-04-01 12:25 | SIPON ---
Date/Time of Note Date/Time of Note DATE: 04/01/17 TIME: 12:23 Operative Report Preoperative Diagnosis 1.Chest pain 2.abnl mpi Postoperative Diagnosis 1.non-obsructive cad 2.low NL LVEDP Operation/Procedure Performed 1.[facility] Surgeon see signature line cancer genetics assistant Rosanne Anesthesia: moderate sedation Estimated blood loss: minimal Transfusion Required none Specimen NA Grafts/Implants none Complications none BETHEL CABRERA Apr 01, 2017 12:25
--- NOTE | 2017-04-01 12:25 | SIPON ---
Date/Time of Note Date/Time of Note DATE: 04/01/17 TIME: 12:23 Operative Report Preoperative Diagnosis 1.Chest pain 2.abnl mpi Postoperative Diagnosis 1.non-obsructive cad 2.low NL LVEDP Operation/Procedure Performed 1.[facility] Surgeon see signature line recruitment and outreach assistant Rosanne Anesthesia: moderate sedation Estimated blood loss: minimal Transfusion Required none Specimen NA Grafts/Implants none Complications none BETHEL CABRERA Apr 01, 2017 12:25
[2017-04-01] MEDS ORDERED: SOD CHLORIDE 0.9% 1,000 ML IV SCH (12:33)
[2017-04-01] MEDS ORDERED: ACETAMINOPHEN 325 MG TAB PO PRN (13:00)
[2017-04-01] MEDS ORDERED: ONDANSETRON 4 MG INJ IV PRN (13:00)
[2017-04-01] MEDS ORDERED: morphine 2 MG INJ IV PRN (13:00)
[2017-04-01] MEDS ORDERED: AL HYDROX/MG HYDROX/SIMETH 30 ML CUP PO PRN (13:00)
--- NOTE | 2017-04-01 19:32 | RADRPT ---
Vent Rate: 70 bpm RR Interval: 0 msec [place] Interval: 172 msec QRS Duration: 90 msec QT Interval: 384 msec QTC Interval: 414 msec P-R-T [place]: 55 - 83 - 52 degrees Normal sinus rhythm Normal ECG Electronically Signed By: Con Simeon [id number]
--- NOTE | 2017-04-01 19:32 | RADRPT ---
Vent Rate: 70 bpm RR Interval: 0 msec [place] Interval: 172 msec QRS Duration: 90 msec QT Interval: 384 msec QTC Interval: 414 msec P-R-T [place]: 55 - 83 - 52 degrees Normal sinus rhythm Normal ECG Electronically Signed By: Con Simeon [id number]
--- NOTE | 2017-04-01 19:32 | RADRPT ---
Vent Rate: 70 bpm RR Interval: 0 msec [place] Interval: 172 msec QRS Duration: 90 msec QT Interval: 384 msec QTC Interval: 414 msec P-R-T [place]: 55 - 83 - 52 degrees Normal sinus rhythm Normal ECG Electronically Signed By: Con Simeon [id number]
--- NOTE | 2017-04-02 07:06 | CARRPT ---
DATE OF PROCEDURE: 04/01/2017 TYPE OF PROCEDURE: 1. Left heart catheterization. 2. Coronary angiography. 3. Measurement of left ventricular end diastolic pressure. ATTENDING PHYSICIAN: Dr. Bethel Jimenez. REFERRING PHYSICIAN: Self-referred. INDICATION: Chest pain, refractory to medical therapy with positive stress test findings for ischem ia. TYPE OF ANESTHESIA: Conscious local. BRIEF HISTORY: Mr. Luevano is a 36-year-old male with history of hypertension, dyslipidemia, di abetes mellitus who initially had complaints of substernal chest pain. The patient subsequently was placed on ____ medical therapy, continued to have chest pain and a cardiac stress test showing posi tive ischemia. Given these findings with ongoing chest pain on medical therapy, the patient was sen t to the cardiac seed analysis laboratory assistant in order to assess for the possibility of significant obstructive coronary artery disease and his symptoms of chest pain and subsequently admitted to the hospital. DESCRIPTION OF PROCEDURE: After informed consent was obtained, the patient was brought to the [facility] cardiac catheterization laboratory where his right radial area was prepped a nd draped in the usual sterile fashion. Lidocaine 2% was infiltrated into right the radial area in order to achieve adequate anesthesia. Using modified Seldinger technique, the radial artery was can nulated and a 6-Irish arterial sheath was placed. A 6-Irish JL 3.5 catheter was used to cannulate the left main coronary ostium. With contrast injection, multiple views of the left coronary arteri al system were obtained. JL3.5 was removed over a guidewire and JR4 was used to cannulate the right coronary arterial ostium. With contrast injection, multiple views of the right coronary arterial s ystem were obtained. JR4 was removed over a guidewire and a 6-Irish pigtail was passed down the as cending aorta and placed in the ventricle. Left ventricular end-diastolic pressure was ____. JR4 w as then used to cannulate across the aortic valve. Left ventricular end-diastolic pressure was fouzia ured, pulled back across the aortic valve to assess for gradient, which there was none, and removed. Subsequently, at this time, this completed the procedure. The patient's sheath was removed. A TR band was applied. There were no noted complications. FINDINGS: Coronary angiography: Left main 4 mm, no significant stenoses. LAD proximally is a 3.5 mm vessel a nd has a 20% stenosis in the mid portion. The remainder of the LAD is free of significant focal radha noses. The LAD does stop just short of the apex. There are 2 mid branching diagonals, each approxi mately sub 2 mm with no significant focal stenoses. The circumflex proximally is a 3 mm vessel. __ __ is free of significant focal stenoses. The proximal branching obtuse marginal 2 mm, no significa nt focal stenoses. There exists a ramus branch, 2 mm with a mid body 20% stenosis. The patient's r ight coronary artery proximally is a 4 mm vessel, has no significant focal stenoses throughout its e ntirety. A dominant vessel, gives off a 2.5 mm PDA and a 3 mm posterolateral branch, each with no s ignificant focal stenoses. TOTAL FLUOROSCOPY TIME: 2.3 minutes. TOTAL CONTRAST: 60 mL. IMPRESSION: 1. Very mild nonobstructive coronary artery disease. 2. Normal left heart filling pressure of 5 to 7. 3. No significant aortic stenosis by gradient. RECOMMENDATIONS: In light of procedure and findings would: 1. Maximize medical management. 2. Aggressive risk factor reduction. 3. The patient will be readmitted to the same day surgery center for post-cath observation and cont inue managing ____ with probable discharge later this afternoon. Dictated By: BETHEL HARRISON/ABEL Conf#: [id number] DID#: [id number]
--- NOTE | 2017-04-02 07:06 | CARRPT ---
DATE OF PROCEDURE: 04/01/2017 TYPE OF PROCEDURE: 1. Left heart catheterization. 2. Coronary angiography. 3. Measurement of left ventricular end diastolic pressure. ATTENDING PHYSICIAN: Dr. Bethel Jimenez. REFERRING PHYSICIAN: Self-referred. INDICATION: Chest pain, refractory to medical therapy with positive stress test findings for ischem ia. TYPE OF ANESTHESIA: Conscious local. BRIEF HISTORY: Mr. Luevano is a 36-year-old male with history of hypertension, dyslipidemia, di abetes mellitus who initially had complaints of substernal chest pain. The patient subsequently was placed on ____ medical therapy, continued to have chest pain and a cardiac stress test showing posi tive ischemia. Given these findings with ongoing chest pain on medical therapy, the patient was sen t to the cardiac mineral ore processing labourer in order to assess for the possibility of significant obstructive coronary artery disease and his symptoms of chest pain and subsequently admitted to the hospital. DESCRIPTION OF PROCEDURE: After informed consent was obtained, the patient was brought to the [facility] cardiac catheterization laboratory where his right radial area was prepped a nd draped in the usual sterile fashion. Lidocaine 2% was infiltrated into right the radial area in order to achieve adequate anesthesia. Using modified Seldinger technique, the radial artery was can nulated and a 6-Malaysian arterial sheath was placed. A 6-Malaysian JL 3.5 catheter was used to cannulate the left main coronary ostium. With contrast injection, multiple views of the left coronary arteri al system were obtained. JL3.5 was removed over a guidewire and JR4 was used to cannulate the right coronary arterial ostium. With contrast injection, multiple views of the right coronary arterial s ystem were obtained. JR4 was removed over a guidewire and a 6-Malaysian pigtail was passed down the as cending aorta and placed in the ventricle. Left ventricular end-diastolic pressure was ____. JR4 w as then used to cannulate across the aortic valve. Left ventricular end-diastolic pressure was fouzia ured, pulled back across the aortic valve to assess for gradient, which there was none, and removed. Subsequently, at this time, this completed the procedure. The patient's sheath was removed. A TR band was applied. There were no noted complications. FINDINGS: Coronary angiography: Left main 4 mm, no significant stenoses. LAD proximally is a 3.5 mm vessel a nd has a 20% stenosis in the mid portion. The remainder of the LAD is free of significant focal radha noses. The LAD does stop just short of the apex. There are 2 mid branching diagonals, each approxi mately sub 2 mm with no significant focal stenoses. The circumflex proximally is a 3 mm vessel. __ __ is free of significant focal stenoses. The proximal branching obtuse marginal 2 mm, no significa nt focal stenoses. There exists a ramus branch, 2 mm with a mid body 20% stenosis. The patient's r ight coronary artery proximally is a 4 mm vessel, has no significant focal stenoses throughout its e ntirety. A dominant vessel, gives off a 2.5 mm PDA and a 3 mm posterolateral branch, each with no s ignificant focal stenoses. TOTAL FLUOROSCOPY TIME: 2.3 minutes. TOTAL CONTRAST: 60 mL. IMPRESSION: 1. Very mild nonobstructive coronary artery disease. 2. Normal left heart filling pressure of 5 to 7. 3. No significant aortic stenosis by gradient. RECOMMENDATIONS: In light of procedure and findings would: 1. Maximize medical management. 2. Aggressive risk factor reduction. 3. The patient will be readmitted to the same day surgery center for post-cath observation and cont inue managing ____ with probable discharge later this afternoon. Dictated By: BETHEL HARRISON/ABEL Conf#: [id number] DID#: [id number]
--- NOTE | 2017-04-02 07:06 | CARRPT ---
DATE OF PROCEDURE: 04/01/2017 TYPE OF PROCEDURE: 1. Left heart catheterization. 2. Coronary angiography. 3. Measurement of left ventricular end diastolic pressure. ATTENDING PHYSICIAN: Dr. Bethel Jimenez. REFERRING PHYSICIAN: Self-referred. INDICATION: Chest pain, refractory to medical therapy with positive stress test findings for ischem ia. TYPE OF ANESTHESIA: Conscious local. BRIEF HISTORY: Mr. Luevano is a 36-year-old male with history of hypertension, dyslipidemia, di abetes mellitus who initially had complaints of substernal chest pain. The patient subsequently was placed on ____ medical therapy, continued to have chest pain and a cardiac stress test showing posi tive ischemia. Given these findings with ongoing chest pain on medical therapy, the patient was sen t to the cardiac hospital laboratory technician in order to assess for the possibility of significant obstructive coronary artery disease and his symptoms of chest pain and subsequently admitted to the hospital. DESCRIPTION OF PROCEDURE: After informed consent was obtained, the patient was brought to the [facility] cardiac catheterization laboratory where his right radial area was prepped a nd draped in the usual sterile fashion. Lidocaine 2% was infiltrated into right the radial area in order to achieve adequate anesthesia. Using modified Seldinger technique, the radial artery was can nulated and a 6-Belizean arterial sheath was placed. A 6-Belizean JL 3.5 catheter was used to cannulate the left main coronary ostium. With contrast injection, multiple views of the left coronary arteri al system were obtained. JL3.5 was removed over a guidewire and JR4 was used to cannulate the right coronary arterial ostium. With contrast injection, multiple views of the right coronary arterial s ystem were obtained. JR4 was removed over a guidewire and a 6-Belizean pigtail was passed down the as cending aorta and placed in the ventricle. Left ventricular end-diastolic pressure was ____. JR4 w as then used to cannulate across the aortic valve. Left ventricular end-diastolic pressure was fouzia ured, pulled back across the aortic valve to assess for gradient, which there was none, and removed. Subsequently, at this time, this completed the procedure. The patient's sheath was removed. A TR band was applied. There were no noted complications. FINDINGS: Coronary angiography: Left main 4 mm, no significant stenoses. LAD proximally is a 3.5 mm vessel a nd has a 20% stenosis in the mid portion. The remainder of the LAD is free of significant focal radha noses. The LAD does stop just short of the apex. There are 2 mid branching diagonals, each approxi mately sub 2 mm with no significant focal stenoses. The circumflex proximally is a 3 mm vessel. __ __ is free of significant focal stenoses. The proximal branching obtuse marginal 2 mm, no significa nt focal stenoses. There exists a ramus branch, 2 mm with a mid body 20% stenosis. The patient's r ight coronary artery proximally is a 4 mm vessel, has no significant focal stenoses throughout its e ntirety. A dominant vessel, gives off a 2.5 mm PDA and a 3 mm posterolateral branch, each with no s ignificant focal stenoses. TOTAL FLUOROSCOPY TIME: 2.3 minutes. TOTAL CONTRAST: 60 mL. IMPRESSION: 1. Very mild nonobstructive coronary artery disease. 2. Normal left heart filling pressure of 5 to 7. 3. No significant aortic stenosis by gradient. RECOMMENDATIONS: In light of procedure and findings would: 1. Maximize medical management. 2. Aggressive risk factor reduction. 3. The patient will be readmitted to the same day surgery center for post-cath observation and cont inue managing ____ with probable discharge later this afternoon. Dictated By: BETHEL HARRISON/ABEL Conf#: [id number] DID#: [id number]
== END 2017-04-01 16:00 | disposition home or self-care (01) ==
LOC: SDS 08:36
PROVIDERS: ATTEND Internal Medicine
DX: I25.10 Atherosclerotic heart disease of native coronary artery without angina pectoris (principal); I10 Essential (primary) hypertension; E78.5 Hyperlipidemia, unspecified
CPT/HCPCS: 71010; 80048; 80061; 82962; 85025; 85610; 85730; 93005; 93458; C1887; J1200; J1644; J2250; J3010; Z7610

== ENCOUNTER 2017-04-13 16:55 | Emergency (ER) | payer OTHER ==
[~2017-04-13] VITALS: Ht 172.7 cm; Wt 101.8 kg
[~2017-04-13 16:55] MED LIST changes: -DIAZEPAM 5 MG TAB PO PRN; -DIPHENHYDRAMINE 50 MG CAP PO PRN; -FAMOTIDINE 20 MG TAB PO ONE; -SOD CHLORIDE 0.45% 500 ML IV SCH
[2017-04-13 16:59] VITALS: Ht 172.7 cm; Wt 101.8 kg
--- NOTE | 2017-04-13 17:29 | ERD ---
ER Documentation Chief Complaint Chief Complaint sudden onset chest pain today hx cardiac, diabetes, htn HPI Patient is a 37-year-old male with coronary disease, hypertension, and diabetes who presents with chest pain. The patient was brought in by ambulance. He was given aspirin by paramedics. He denies chest pain currently. He said that he had chest pain while he was at work which lasted 3-4 seconds. He says "I feel slow". He plans to see Dr. Jimenez who has seen him previously for from cardiology. He has had no treatment as of yet. Upon review of old medical records the patient has multiple visits to the ER. Review of the emergency department information exchange system shows visits to 6 separate emergency departments and 36 visits within 1 year. Does not currently have a primary doctor. ROS All systems reviewed and are negative except as per history of present illness. Medications Home Meds Active Scripts Bisacodyl* (Dulcolax*) 5 Mg Tablet.dr, 10 MG MS DAILY Y for CONSTIPATION, #10 TAB Prov:JONATHAN DELGADO MD 02/07/17 Polyethylene Glycol* (Miralax*) 17 Gm Powd.pack, 17 GM PO DAILY, #7 Prov:JONATHAN DELGADO MD 02/07/17 Ibuprofen* (Motrin*) 600 Mg Tab, 600 MG PO Q6, #20 TAB Prov:JONATHAN DELGADO MD 02/07/17 Reported Medications Lorazepam* (Lorazepam*) 1 Mg Tablet, 0.5 MG PO HS Y for ANXIETY, #30 TAB 11/27/16 Metformin Hcl* (Metformin Hcl*) 1,000 Mg Tablet, 1000 MG PO WITH BREAKFAST DINNE , #60 TAB 11/27/16 Glipizide* (Glipizide*) 5 Mg Tablet, 5 MG PO AC BREAKFAST Y for PRN, TAB 11/27/16 Gabapentin* (Gabapentin*) 300 Mg Capsule, 300 MG PO QHS, #60 CAP 11/27/16 Aspirin* (Aspirin* Chew) 81 Mg Tab.chew, 81 MG PO DAILY, TAB.CHEW 11/12/15 Lisinopril* (Lisinopril*) 5 Mg Tablet, 5 MG PO DAILY, #30 TAB 11/12/15 Allergies Allergies: Coded Allergies: No Known Drug Allergies (Verified Allergy, Mild, 04/01/17) PMhx/Soc History of Surgery: No Anesthesia Reaction: No Hx Neurological Disorder: No Hx Respiratory Disorders: No Hx Cardiac Disorders: Yes (HTN,HYPERCHOLESTEROLEMIA) Hx Psychiatric Problems: Yes (ANXIETY) Hx Miscellaneous Medical Probl: No Hx Alcohol Use: No Hx Substance Use: No Hx Tobacco Use: No Smoking Status: Never smoker FmHx Family History: No coronary disease Physical Exam Vitals Vital Signs Date Time Temp Pulse Resp B/P Pulse Ox O2 Delivery O2 Flow Rate FiO2 04/13/17 17:37 98.1 75 18 132/78 99 Room Air 04/13/17 16:59 98.3 90 20 137/81 98 Physical Exam Const: No acute distress Head: Atraumatic Eyes: Normal Conjunctiva ENT: Normal External Ears, Nose and Mouth. Neck: Full range of motion..~ No meningismus. Resp: Clear to auscultation bilaterally Cardio: Regular rate and rhythm, no murmurs Abd: Soft, non tender, non distended. Normal bowel sounds Skin: No petechiae or rashes Back: No midline or flank tenderness Ext: No cyanosis, or edema Neur: Awake and alert Psych: Normal Mood and Affect Results 24 hrs Laboratory Tests Test 04/13/17 17:18 Bedside Glucose 173mg/dL Procedures/[facility] EKG read by me: Rate/Rhythm: Regular rate and rhythm at a rate of 75 Intervals: Normal Impression: No evidence of ischemia or arrhythmia Chest X-ray 1V Interpreted by me: Soft Tissue: No acute abnormalities Bones: No acute abnormalities Mediastinum/Cardiac Silhouette/Lungs: No acute abnormalities Accu-Chek is normal. Patient is a 37-year-old male presents with chest pain and anxiety. His EKG is negative. His chest x-ray is negative. His Accu-Chek is normal. He had 3-4 seconds of chest pain which resolved on its own. At this point I doubt acute coronary syndrome, pneumonia, pneumothorax, pulmonary embolism, or aortic dissection. The patient will be discharged home but will need to follow-up with a primary doctor for reevaluation within 24-48 hours. He can return for any worsening symptoms. Departure Diagnosis: Primary Impression: Anxiety Additional Impression: Chest pain Chest pain type: unspecified Qualified Code: R07.9 - Chest pain, unspecified type Condition: Fair Patient Instructions: Anxiety Reaction, Chest Pain, Uncertain Cause Additional Instructions: Call your primary care doctor TOMORROW for an appointment during the next 1-2 days.See the doctor sooner or return here if your condition worsens before your appointment time. CELESTINO FARRIS MD Apr 13, 2017 17:29
[2017-04-13 17:37] VITALS: BP 132/78; PULSE 75; RESP 18; TEMP 98.1
--- NOTE | 2017-04-13 17:39 | RADRPT ---
PROCEDURE: Chest x-ray CLINICAL INDICATION: Chest pain TECHNIQUE: Chest single view COMPARISON: 04/01/2017 FINDINGS: The heart is normal in size. The pulmonary vessels are normal in caliber. The lungs are clear. Th e costophrenic angles are sharp. The visualized bony thorax is unremarkable. IMPRESSION: No acute cardiopulmonary disease. RPTAT: HH .Franklin Linares MD, Date Time Electronically viewed and signed by .Franklin Linares MD, on 04/13/2017 17:39 .W/
== END 2017-04-13 17:39 | disposition home or self-care (01) ==
LOC: E/R 16:55
DX: F41.9 Anxiety disorder, unspecified (principal); I10 Essential (primary) hypertension; E11.9 Type 2 diabetes mellitus without complications; Z79.82 Long term (current) use of aspirin; Z79.84 Long term (current) use of oral hypoglycemic drugs
CPT/HCPCS: 71010; 82962; 93005; Z7502

== ENCOUNTER 2017-08-17 01:28 | Emergency (ER) | END 2017-08-17 05:09 | disposition home or self-care (01) ==

== ENCOUNTER 2017-11-14 01:15 | Emergency (ER) | END 2017-11-14 04:45 | disposition home or self-care (01) ==

== ENCOUNTER 2018-03-23 01:28 | Observation (INO) | END 2018-03-23 14:31 | disposition home or self-care (01) ==

== ENCOUNTER 2018-06-12 06:43 | Emergency (ER) | payer OTHER ==
[~2018-06-12] VITALS: Wt 101.3 kg
[~2018-06-12 06:43] MED LIST changes: +ACET325T33 PO; +ASPI-831 PO; -ASPI81TA3 PO; -BISA-57 PR; -GLIP5TAB13 PO; -IBUP-1542 PO; -METF1000 PO; +METF850T13 PO; -POLY17PO6 PO
[2018-06-12 06:44] VITALS: BP 129/80; PULSE 67; RESP 18
--- NOTE | 2018-06-12 07:39 | ERD ---
ER Documentation Chief Complaint Chief Complaint rash and itching since yeterday HPI 38-year-old male, with history of diabetes, presents to the emergency department, complaining of sudden onset of erythematous, pruritic rash that is started on the neck and has a spread through the body, sparing the face. No history of previous episodes. The patient denies sore throat, no shortness of breath, no cough. No history of allergies. No changes in medications, no suspicious food allergies. ROS All systems reviewed and are negative except as per history of present illness. Medications Home Meds Active Scripts Aspirin (Aspirin) 81 Mg Chew, 81 MG PO DAILY for 30 Days, TAB otc Prov:WAYNE HUERTA MD 03/23/18 Acetaminophen* (Tylenol*) 325 Mg Tablet, 650 MG PO Q6H PRN for PAIN LEVEL 1-3 OR FEVER for 1 Day, TAB Prov:WAYNE HUERTA MD 03/23/18 Reported Medications Lorazepam* (Lorazepam*) 1 Mg Tablet, 1 MG PO HS PRN for NEEDED, #30 TAB 03/23/18 Lisinopril* (Lisinopril*) 5 Mg Tablet, 5 MG PO DAILY, #30 TAB 03/23/18 Gabapentin* (Gabapentin*) 300 Mg Capsule, 300 MG PO DAILY, #60 CAP 03/23/18 Metformin Hcl* (Metformin Hcl*) 850 Mg Tablet, 850 MG PO WITH BREAKFAST DINNE, #60 TAB 03/23/18 Allergies Allergies: Coded Allergies: No Known Drug Allergies (Verified Allergy, Mild, 03/23/18) PMhx/Soc History of Surgery: No Anesthesia Reaction: No Hx Neurological Disorder: Yes (PERIPHERAL NEUROPATHY) Hx Respiratory Disorders: No Hx Cardiac Disorders: Yes (HTN, HYPERCHOLESTEROLEMIA) Hx Psychiatric Problems: No Hx Miscellaneous Medical Probl: Yes (DM) Hx Alcohol Use: No Hx Substance Use: No Hx Tobacco Use: No FmHx Family History: No diabetes, No coronary disease Physical Exam Vitals Vital Signs Date Temp Pulse Resp B/P (MAP) Pulse Ox O2 O2 Flow FiO2 Time Delivery Rate 06/12/18 97.7 67 18 129/80 99 06:44 (96) Physical Exam Const: No acute distress Head: Atraumatic Eyes: Normal Conjunctiva ENT: Normal External Ears, Nose and Mouth. Neck: Full range of motion. No meningismus. Resp: Clear to auscultation bilaterally Cardio: Regular rate and rhythm, no murmurs Abd: Soft, non tender, non distended. Normal bowel sounds Skin: Urticarial rash compromising the torso and upper and lower extremities. No tongue swelling. Back: No midline or flank tenderness Ext: No cyanosis, or edema Neur: Awake and alert Psych: Normal Mood and Affect Procedures/MDM Differential diagnosis include but not limited to: Acute allergic reaction, autoimmune dermatitis, medication side effect, low suspicion for angioedema, anaphylactic shock, Quintana-Devonte syndrome. Physical examination and clinical presentation consistent most likely with acute allergic dermatitis During the ED course the patient remained hemodynamically stable stable, no new complaints. Clinical impression discussed with patient whom agrees with management. The patient is stable to be treated outpatient and will be discharged home with a Rx for prednisone and Benadryl, some side effects of prescribed medications (headache, rash, nausea, vomiting, diarrhea, drowsiness, habituation, bleeding, hypertension, interactions with other medications) were reviewed. The patient was instructed to follow up with the primary care provider in the next 48h. If symptoms persist, worsen or new symptoms develop, then patient should return to the ED immediately. Instructions explained and given directly by me with acknowledgment and demonstrated understanding. Disclaimer: Inadvertent spelling and grammatical errors are likely due to EHR/dictation software use and do not reflect on the overall quality of patient care. Also, please note that the electronic time recorded on this note does not necessarily reflect the actual time of the patient encounter. Departure Diagnosis: Primary Impression: Allergic urticaria Condition: Stable Additional Instructions: Thank you very much for allowing us to participate in your care. Your health and safety is our top priority at [facility]. Call your primary care doctor TOMORROW for an appointment during the next 2-4 days and bring all the information and medications prescribed. Have prescriptions filled and follow precisely the directions on the label. If the symptoms get worse and your provider is unavailable, return to the Emergency Department immediately. AFSHAN CHOWDHURY MD Jun 12, 2018 07:39
[2018-06-12] MEDS ORDERED: BEN50 PO (07:40)
[2018-06-12] MEDS ORDERED: PRED20TA PO (07:40)
[2018-06-12] MEDS ORDERED: predniSONE 20 MG TAB PO ONE (08:00)
== END 2018-06-12 07:48 | disposition home or self-care (01) ==
LOC: FTE 06:43
DX: L50.0 Allergic urticaria (principal); E11.9 Type 2 diabetes mellitus without complications; I10 Essential (primary) hypertension; Z79.82 Long term (current) use of aspirin; Z79.84 Long term (current) use of oral hypoglycemic drugs
CPT/HCPCS: J7512; Z7502; 99283

== ENCOUNTER 2018-07-24 00:16 | Emergency (ER) | payer OTHER ==
[~2018-07-24] VITALS: Ht 172.7 cm; Wt 102.0 kg
[~2018-07-24 00:16] MED LIST changes: +BEN50 PO; +PRED20TA PO
[2018-07-24 00:37] VITALS: BP 126/58; PULSE 101; RESP 18; Ht 172.7 cm; Wt 102.0 kg
--- NOTE | 2018-07-24 06:17 | ERD ---
ER Documentation Chief Complaint Chief Complaint right earache x 3 days HPI This is a 38-year-old male who presents here in emergency department with complaints of right ear pain for about 3 days. Patient stated that he tried eardrops with no relief. Denies headache, head injury, loss of consciousness, dizziness, neck pain, neck stiffness, throat pain, difficulty swallowing, difficulty breathing lying flat, shoulder pain, chest pain, back pain, abdominal pain, nausea, vomiting, constipation, diarrhea, urinary symptoms, loss of bowel and bladder control, trauma, injury, falls, difficulty walking due to pain, numbness or tingling sensation, calf pain, recent travel, recent major surgery in the last 3 weeks, calf pain, recent long travel, recent exposure to any illness, recent antibiotic use in the last 3 months, fever, chills, seizures. ROS All systems reviewed and are negative except as per history of present illness. Medications Home Meds Active Scripts Ibuprofen* (Motrin*) 800 Mg Tab, 800 MG PO Q6H PRN for PAIN AND OR ELEVATED TEMP, #30 TAB Prov:SANCHEZ TOVAR 07/24/18 Ciprofloxacin Hcl/Dexameth (Ciprodex Otic Suspension) 7.5 Ml Drops.susp, 4 DROP RIGHT EAR BID for 7 Days, EA Prov:SANCHEZ TOVAR 07/24/18 Amoxicillin* (Amoxicillin*) 500 Mg Cap, 500 MG PO TID for 7 Days, CAP Prov:SANCHEZ TOVAR 07/24/18 Diphenhydramine Hcl* (Benadryl*) 50 Mg Cap, 50 MG PO TID PRN for ITCHING/RASH, #15 CAP Prov:AFSHAN CHOWDHURY MD 06/12/18 Prednisone* (Prednisone*) 20 Mg Tab, 40 MG PO DAILY for 4 Days, TAB Prov:AFSHAN CHOWDHURY MD 06/12/18 Aspirin (Aspirin) 81 Mg Chew, 81 MG PO DAILY for 30 Days, TAB otc Prov:WAYNE HUERTA MD 03/23/18 Acetaminophen* (Tylenol*) 325 Mg Tablet, 650 MG PO Q6H PRN for PAIN LEVEL 1-3 OR FEVER for 1 Day, TAB Prov:WAYNE HUERTA MD 03/23/18 Reported Medications Lorazepam* (Lorazepam*) 1 Mg Tablet, 1 MG PO HS PRN for NEEDED, #30 TAB 03/23/18 Lisinopril* (Lisinopril*) 5 Mg Tablet, 5 MG PO DAILY, #30 TAB 03/23/18 Gabapentin* (Gabapentin*) 300 Mg Capsule, 300 MG PO DAILY, #60 CAP 03/23/18 Metformin Hcl* (Metformin Hcl*) 850 Mg Tablet, 850 MG PO WITH BREAKFAST DINNE, #60 TAB 03/23/18 Allergies Allergies: Coded Allergies: No Known Drug Allergies (Verified Allergy, Mild, 03/23/18) PMhx/Soc Medical and Surgical Hx: pt denies Surgical Hx History of Surgery: No Anesthesia Reaction: No Hx Neurological Disorder: Yes (PERIPHERAL NEUROPATHY) Hx Respiratory Disorders: No Hx Cardiac Disorders: Yes (HTN, HYPERCHOLESTEROLEMIA) Hx Psychiatric Problems: No Hx Miscellaneous Medical Probl: Yes (DM) Hx Alcohol Use: No Hx Substance Use: No Hx Tobacco Use: No Smoking Status: Never smoker Physical Exam Vitals Vital Signs Date Temp Pulse Resp B/P (MAP) Pulse Ox O2 O2 Flow FiO2 Time Delivery Rate 07/24/18 98.7 101 18 126/58 98 00:37 (80) Physical Exam Const: No acute distress Head: Atraumatic Eyes: Normal Conjunctiva ENT: Normal External Ears, Nose and Mouth. Right ear: External canal has erythema. TM is erythematous. No mastoid tenderness. No hearing loss. No foreign bodies seen. Left ear: TM is not erythematous. No bleeding. No discharge. No hearing loss. No mastoid tenderness. No foreign bodies seen. Neck: Full range of motion. No meningismus. No nuchal rigidity. No signs of meningeal irritation. Resp: Clear to auscultation bilaterally Cardio: Regular rate and rhythm, no murmurs Abd: Soft, non tender, non distended. Normal bowel sounds Skin: No petechiae or rashes Back: No midline or flank tenderness Ext: No cyanosis, or edema Neur: Awake and alert. No neurological deficits. Psych: Normal Mood and Affect Results 24 hrs Current Medications Medications Dose Sig/Kp Start Time Status Last (Trade) Ordered Route PRN Stop Time Admin Dose Reason Admin Ibuprofen 800 mg ONCE ONCE 07/24/18 DC 07/24/18 (Motrin) PO 06:30 06:47 07/24/18 06:31 Procedures/MDM Diagnostic tests: Clinical exam. Treatment: NA. Re-evaluation:NA. Differential diagnosis I have low suspicion for mastoiditis, meningitis, peritonsillar abscess. Final diagnosis: Otitis media. Otitis externa. Prescription: Cipro optic drops. Amoxicillin. Motrin. Follow-up with PCP in the next 24-48 hours. Follow-up with ENT in the next 24- 48 hours. Come back here in the emergency department for any new symptoms or any worsening symptoms. All questions and concerns were answered. Patient and family members verbalized understanding and agreed with plan of care. Hemodynamically stable on discharge. Departure Diagnosis: Primary Impression: Otitis externa Additional Impression: Otitis media Condition: Stable Additional Instructions: Follow-up with PCP in the next 24-48 hours. Follow-up with ENT in the next 24- 48 hours. Come back here in the emergency department for any new symptoms or any worsening symptoms. SANCHEZ TOVAR Jul 24, 2018 06:17
[2018-07-24] MEDS ORDERED: IBUP800T48 PO (06:18)
[2018-07-24] MEDS ORDERED: AMOX500C2 PO (06:18)
[2018-07-24] MEDS ORDERED: CIPR7.5D RIGHT EAR (06:18)
[2018-07-24] MEDS ORDERED: IBUPROFEN 800 MG TAB PO ONE (06:30)
== END 2018-07-24 06:50 | disposition home or self-care (01) ==
LOC: FTE 00:16
DX: H60.91 Unspecified otitis externa, right ear (principal); H66.91 Otitis media, unspecified, right ear; I10 Essential (primary) hypertension; E11.9 Type 2 diabetes mellitus without complications; Z79.82 Long term (current) use of aspirin; Z79.84 Long term (current) use of oral hypoglycemic drugs
CPT/HCPCS: Z7502; Z7610; 99283

== ENCOUNTER 2019-03-19 03:40 | Emergency (ER) | payer OTHER ==
[~2019-03-19] VITALS: Ht 172.7 cm; Wt 101.5 kg
[~2019-03-19 03:40] MED LIST changes: +AMOX500C2 PO; +CIPR7.5D RIGHT EAR; +IBUP800T48 PO; +SIME80TA60 PO
[2019-03-19 03:41] VITALS: BP 144/82; PULSE 95; RESP 16; Ht 172.7 cm; Wt 101.5 kg
== END 2019-03-19 06:08 | disposition home or self-care (01) ==
LOC: FTE 03:40
DX: R10.9 Unspecified abdominal pain (principal); I10 Essential (primary) hypertension; E11.9 Type 2 diabetes mellitus without complications; Z79.82 Long term (current) use of aspirin; Z79.84 Long term (current) use of oral hypoglycemic drugs
CPT/HCPCS: 99282